=== PATIENT | male | born 1985 | race Caucasian/White ===

== ENCOUNTER 2020-06-03 19:57 | Emergency (ER) | payer MEDICAID, SELFPAY ==
--- NOTE | ~2020-06-03 | XR_ITS ---
EXAMINATION: XR HAND/WRIST, RIGHT CLINICAL INFORMATION: Fall with pain and swelling COMPARISON: None TECHNIQUE: 4 views of the right hand/wrist FINDINGS: There is a subtle irregularity along the distal radius opposite the scapholunate suggesting a nondisplaced fracture. Otherwise unremarkable radiographs of the right hand and wrist. XR/XR hand wrist RT IMPRESSION: Possible hairline fracture of the distal radius at the radiocarpal joint. Consider further evaluation with CT or MRI.
[2020-06-03 20:18] VITALS: BP 141/75; PULSE 87; RESP 16; TEMP 36.7; O2SAT 98; BMI 33.6
[2020-06-03] MEDS: Ibuprofen 600 MG TABLET PO (21:36)
[2020-06-03 23:06] VITALS: BP 137/83; PULSE 76; RESP 17; O2SAT 99
--- NOTE | 2020-06-03 23:12 | ED.FALL ---
HPI - Fall General Chief Complaint: Fall Stated Complaint: Hand pain/Fall Source: patient Mode of arrival: ambulatory Limitations: no limitations History of Present Illness HPI Narrative: 35-year-old male with no significant past medical history presents with right hand and wrist swelling and pain after a fall on outstretched arm after mechanical fall. He does not describe any other symptoms, does not describe any prodromal effects prior to the fall. MD complaint: fall Onset (ago): hour(s) (Within the hour of arrival) Fall from: standing Fall witnessed: yes, by family Place fall occurred: home Loss of consciousness: none Prolonged down time: no Symptoms prior to fall: none Context: tripped/slipped Location of injury - extremities: right: arm Severity: moderate Severity scale (1-10): 6 Quality: aching and throbbing Associated symptoms (after fall): denies Related Data Previous Rx's Medication Instructions Recorded oxycodone 5 mg PO Q8H PRN #7 tab 06/03/20 Allergies Allergy/AdvReac Type Severity Reaction Status Date / Time egg [EGG] Allergy Unknown STOMACH Verified 06/03/20 20:19 UPSET banana [BANANA] AdvReac Unknown STOMACH Verified 06/03/20 20:19 CRAMP [employer]ODU[employer] Allergy Unknown DIARRHEA Uncoded 11/23/19 15:33 Review of Systems Review of Systems: Constitutional: No Fever, No Chills ENT/Mouth: No Ear Pain, No Hoarseness, No sore throat Eyes: No Eye Pain, No Swelling, No Redness, No Foreign Body Cardiovascular: No Chest Pain, No SOB Respiratory: No Cough, No Dyspnea Gastrointestinal: No Nausea, No Vomiting, No Diarrhea, No abdominal Pain Genitourinary: No Dysuria, No Hematuria Musculoskeletal: positive right wrist pain, No Myalgias, No Joint Swelling Skin: No Skin lacerations, No rash Neuro: No Weakness, No Numbness, No Paresthesias, No Loss of Consciousness, No Dizziness, No Headache Psych: No Anxiety/Panic, No Depression Heme/Lymph: no easy bruising, no Lymphadenopathy Endocrine: No Polyuria, No Polydipsia Yes all other systems are reviewed and are negative PMFSH Past Medical History Attestation statement: The following information was validated with the patient. Source: old records reviewed Medical History Patient denies significant medical history Social History Social History Advance Directives: No Physical Exam Vital Signs: Vital Signs: Last Vital Signs Temp 98.0 F 06/03/20 20:18 Pulse 76 06/03/20 23:06 Resp 17 06/03/20 23:06 BP 137/83 06/03/20 23:06 Pulse Ox 99 06/03/20 23:06 Body Mass Index 33.6 Appearance: Alert. Oriented X3. Mild distress. Eyes: Pupils equal, round and reactive to light. ENT: Pharynx normal. Neck: Normal inspection. Neck supple. CVS: Normal heart rate and rhythm. Pulses normal. Respiratory: No respiratory distress. Breath sounds normal. Abdomen: Soft and nontender. Skin: Skin warm and dry. Normal skin color. Normal skin turgor. Extremities: Decreased range of motion to the right upper extremity wrist, no snuffbox tenderness, brisk capillary refill and equal pulses bilaterally Neuro: No motor deficit. No sensory deficit. Cranial nerves 2-12 intact Course Course Course Narrative: 35-year-old male presents with right hand and wrist pain after a FOOSH. X-rays indicate some distal radial fracture without displacement. Plan of care is for sugar-tong splint, pain management, and follow up with Orthopedics. Detailed description regarding plan to call hospital to speak to financial services regarding obtaining medical insurance. Approximately 30 minutes after sugar-tong placement, patient continues to have brisk capillary refill, and no focal neural deficits. Patient verbalized understanding of and agrees to plan of care discharge home. Procedures Orthopedic Splinting/Casting Injury #1: Side: right Upper Extremity Injury Location: forearm and wrist Upper Extremity Immobilizer: sugar tong splint MDM - Fall Differential Diagnosis Differential diagnosis: Likely dislocation, fracture and compression fracture Medical Records Attestation: I reviewed the patient's medical records. Lab Data Attestation: I reviewed the patient's lab results. Imaging Data Left hand and wrist x-ray: Attestation: I personally reviewed and interpreted this imaging study as follows: Radiologist's impression: EXAMINATION: XR HAND/WRIST, RIGHT CLINICAL INFORMATION: Fall with pain and swelling COMPARISON: None TECHNIQUE: 4 views of the right hand/wrist FINDINGS: There is a subtle irregularity along the distal radius opposite the scapholunate suggesting a nondisplaced fracture. Otherwise unremarkable radiographs of the right hand and wrist. XR/XR hand wrist RT IMPRESSION: Possible hairline fracture of the distal radius at the radiocarpal joint. Consider further evaluation with CT or MRI. Discharge Plan Discharge Clinical Impression: Distal radial fracture Qualifiers: Encounter type: initial encounter Fracture type: closed Fracture morphology: other fracture Laterality: right Qualified Code(s): S52.591A - Other fractures of lower end of right radius, initial encounter for closed fracture Patient Disposition: Home, Self-Care Instructions: Wrist Fracture in Adults (ED) Additional Instructions: You were evaluated for right hand pain after fall. You have a distal radial fracture. Please keep your sugar-tong splint in place until you see Orthopedics. Please call and request an appointment. You may consider calling the hospital's Main number and requesting financial services to help you obtain insurance I prescribed tablets of oxycodone. Oxycodone is a narcotic and as high risk for addiction and abuse. Do not drive or operate machinery while taking this medication. Thank you for choosing this emergency department for evaluation. Please follow-up with primary care physician as needed. Return to the emergency department for any new, concerning, or worsening symptoms. Prescriptions: New oxycodone 5 mg tablet 5 mg PO Q8H PRN (Reason: pain) Qty: 7 RF: 0 Stand Alone Forms: Work/School Release Interventions: ED Discharge Assessment Last Done: 06/04/20 00:37 Discharge Date/Time: 06/04/20 00:38
[2020-06-04] MEDS: oxyCODONE HCl Immed Release 5 MG TABLET 10 MG PO (00:34)
== END 2020-06-04 00:38 | disposition home or self-care (01) ==
PROVIDERS: Emergency Provider Emergency Medicine Emergency Medical Services
DX: S52.591A Other fractures of lower end of right radius, initial encounter for closed fracture (principal); W01.0XXA Fall on same level from slipping, tripping and stumbling without subsequent striking against object, initial encounter; Y93.9 Activity, unspecified; Y92.9 Unspecified place or not applicable; Y99.9 Unspecified external cause status
CPT/HCPCS: 29125; 73110; 73130; 99283; 99284

== ENCOUNTER 2020-06-10 09:15 | Outpatient (REF) | payer MEDICAID, SELFPAY ==
--- NOTE | ~2020-06-10 | XR_ITS ---
EXAMINATION: XR WRIST, RIGHT WITH SCAPHOID CLINICAL INFORMATION: Right wrist pain. COMPARISON: Right hand/wrist radiographs dated 06/03/2020 and right forearm radiographs dated 04/18/2016. TECHNIQUE: AP, oblique, lateral, and scaphoid views of the right wrist. FINDINGS: Redemonstration of a possible nondisplaced fracture through the distal radial articular surface, similar when compared to the prior radiographs. No new bone/callus formation. No osseous erosion. No abnormal soft tissue calcification. XR/XR wrist RT w scaphoid IMPRESSION: Redemonstration of a possible nondisplaced fracture through the distal radial articular surface. No significant interval change.
== END 2020-06-10 09:16 | disposition home or self-care (01) ==
LOC: HO.HOSX 09:15
PROVIDERS: Visit Provider Orthopaedic Surgery
DX: M25.531 Pain in right wrist (principal); S52.501A Unspecified fracture of the lower end of right radius, initial encounter for closed fracture; W18.30XA Fall on same level, unspecified, initial encounter; Y93.9 Activity, unspecified; Y92.69 Other specified industrial and construction area as the place of occurrence of the external cause; Y99.0 Civilian activity done for income or pay; F17.200 Nicotine dependence, unspecified, uncomplicated; Z91.012 Allergy to eggs; Z91.011 Allergy to milk products; Z91.018 Allergy to other foods
CPT/HCPCS: 73110; 99202

== ENCOUNTER 2020-07-15 12:04 | Outpatient (REF) | payer MEDICAID, SELFPAY ==
--- NOTE | ~2020-07-15 | XR_ITS ---
EXAMINATION: XR WRIST, RIGHT CLINICAL INFORMATION: Pain right wrist. COMPARISON: None TECHNIQUE: PA, lateral, and oblique views of the right wrist. FINDINGS: The bones and soft tissues are normal. No fracture. Alignment is anatomic with normal joint spaces. No erosions or abnormal soft tissue calcifications. XR/XR wrist RT min 3V IMPRESSION: Unremarkable right wrist exam
== END 2020-07-15 12:05 | disposition home or self-care (01) ==
LOC: HO.HOSX 12:04
PROVIDERS: Visit Provider Orthopaedic Surgery
DX: M25.531 Pain in right wrist (principal); S52.501A Unspecified fracture of the lower end of right radius, initial encounter for closed fracture
CPT/HCPCS: 73110; 99212

== ENCOUNTER 2020-08-06 08:16 | Outpatient (REF) | payer MEDICAID, SELFPAY ==
--- NOTE | ~2020-08-06 | XR_ITS ---
EXAMINATION: XR WRIST, RIGHT CLINICAL INFORMATION: Pain right wrist. COMPARISON: None TECHNIQUE: PA, lateral, and oblique views of the right wrist. FINDINGS: The bones and soft tissues are normal. No fracture. Alignment is anatomic with normal joint spaces. No erosions or abnormal soft tissue calcifications. XR/XR wrist RT min 3V IMPRESSION: Unremarkable right wrist exam.
== END 2020-08-06 08:17 | disposition home or self-care (01) ==
LOC: HO.HOSX 08:16
PROVIDERS: Visit Provider Orthopaedic Surgery
DX: S52.571D Other intraarticular fracture of lower end of right radius, subsequent encounter for closed fracture with routine healing (principal)
CPT/HCPCS: 73110; 99212

== ENCOUNTER 2021-01-11 20:03 | Emergency (ER) | payer MEDICAID, SELFPAY ==
--- NOTE | ~2021-01-11 | US_ITS ---
EXAMINATION: US SCROTUM CLINICAL INFORMATION: Left testicular pain/swelling. COMPARISON: 10/17/2010. TECHNIQUE: A sonogram of the scrotum was performed assessing crowley-scale appearance and color Doppler flow. Spectral Doppler analysis of the arterial and venous flow were performed in the testes bilaterally. FINDINGS: RIGHT: Right testicle measures 4.0 x 2.1 x 2.7 cm, volume 12.4 mL. No focal testicular parenchymal lesions are visualized. Spectral Doppler analysis of the arterial and venous flow is normal in the right testis. Right epididymal head is normal in size. No right hydrocele or varicocele is seen. Right epididymal Doppler flow is normal. There is a 0.9 cm epididymal cyst. LEFT: Left testicle measures 3.8 x 1.8 x 2.6 cm, volume 9.1 mL. No focal testicular parenchymal lesions are visualized. Spectral Doppler analysis of the arterial and venous flow is normal in the left testis. Left epididymal head is increase in size. No left hydrocele or varicocele is seen. Left epididymal Doppler flow is increased. There is a 0.9 cm epididymal cyst. There is a 1.6 x 1.1 x 1.8 cm complex appearing collection in the left scrotal sac from the epididymis and testis. There is surrounding hyperemia and soft tissue thickening. No definite internal vascularity is identified within within it. There is soft tissue edema throughout the inguinal region, greater on the left side. US/US scrotum doppler IMPRESSION: Asymmetric enlargement and hyperemia of the left epididymis, concerning for acute epididymitis in the appropriate clinical context. There is an indeterminate 1.8 cm complex appearing collection in the right scrotal sac with peripheral hyperemia and soft tissue thickening but no definite internal vascularity. This could represent an abscess or hematoma. Recommend clinical correlation and a short-term follow-up to ensure its resolution. Diffuse soft tissue edema.
[2021-01-11 20:50] VITALS: BP 154/87; PULSE 105; RESP 18; TEMP 36.5; O2SAT 100; BMI 32.8
--- NOTE | 2021-01-11 22:04 | ED.GENADULT ---
HPI - General Adult General Chief complaint: General Medical Stated complaint: Testicular issues Time Seen by Provider: 01/12/21 00:17 Source: patient Mode of arrival: ambulatory Limitations: no limitations History of Present Illness HPI narrative: 35 yold male presents to the ED for left testicular swelling and pain since yesterday. patient states yesterday there was a pimple of left testicle where he put a needle in to pop. patient than states this morning he woke up with his left testicle swollen. patient denies any drainage, redness, or foul odor. patient denies any penile discharge or penile lesions. Related Data Previous Rx's Medication Instructions Recorded oxycodone 5 mg tablet 5 mg PO Q8H PRN #7 tab 06/03/20 hydrocodone 5 mg-acetaminophen 325 1 tab PO Q8H PRN #10 tab 06/10/20 mg tablet cephalexin 500 mg capsule 500 mg PO QID #28 cap 01/12/21 doxycycline hyclate 100 mg capsule 100 mg PO BID 7 Days #14 cap 01/12/21 naproxen 500 mg tablet 500 mg PO BID PRN #20 tab 01/12/21 Allergies Allergy/AdvReac Type Severity Reaction Status Date / Time egg [EGG] Allergy Unknown STOMACH Verified 08/06/20 13:44 UPSET banana [BANANA] AdvReac Unknown STOMACH Verified 08/06/20 13:44 [employer] Allergy Unknown DIARRHEA Uncoded 07/15/20 13:38 Review of Systems Review of Systems: Yes all other systems are reviewed and are negative Constitutional: Constitutional: Reports as per HPI and Reports no additional constitutional complaints Eyes: Eyes: Reports as per HPI and Reports no additional eye complaints ENT: Reports system reviewed and no additional complaints, except as documented and Reports as per HPI Cardiovascular: Cardiovascular: Reports as per HPI and Reports no additional cardiovascular complaints Respiratory: Respiratory: Reports as per HPI and Reports no additional respiratory complaints Gastrointestinal: Gastrointestinal: Reports as per HPI and Reports no additional gastrointestinal complaints Genitourinary: Genitourinary: Reports no additional male genitourinary complaints and Reports as per HPI Comments: Left testicular pain Musculoskeletal: Musculoskeletal: Reports no additional musculoskeletal complaints and Reports as per HPI Neurologic: Reports system reviewed and no additional complaints, except as documented and Reports as per HPI Psychiatric: Psychiatric: Reports no additional psychiatric complaints and Reports as per HPI [facility] Past Medical History Medical History Patient denies significant medical history Family History Family History Mother No problems noted. Father No problems noted. 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 Physical Exam Vital Signs: Vital Signs: Last Vital Signs Temp 97.7 F 01/11/21 20:50 Pulse 105 H 01/11/21 20:50 Resp 18 01/11/21 20:50 BP 154/87 H 01/11/21 20:50 Pulse Ox 100 01/11/21 20:50 Body Mass Index 32.8 Const: General: cooperative, healthy appearing, comfortable, no acute distress, well developed, alert, awake and Physically active Orientation/consciousness: patient oriented x3 HENMT: Head: Yes normal to inspection, Yes No palpable skull fracture present, Yes normocephalic, Yes atraumatic and No abrasion Eyes: General: appearance normal, both eyes and all related structures Neck: Neck: Yes normal visual inspection, Yes full ROM, Yes no lymphadenopathy, Yes no meningeal signs, Yes trachea midline, Yes supple, No anterior neck swelling and No tender Chest: Chest palpation & inspection: normal inspection of the chest and normal palpation of entire chest wall Resp: Effort & Inspection: normal respiratory effort and able to speak in complete sentences Auscultation: clear to auscultation bilaterally Cardio: Jugular venous distension: no JVD Heart sounds: S1 normal heart sound present and S2 normal heart sound present GI: Inspection: Yes normal to inspection and No abdominal wall ecchymosis Palpation (GI): Soft to palpation, not firm, nontender, no guarding and not rigid : General: No CVA tenderness and Yes no CVA tenderness Penis: normal penis Meatus: meatus normal, no meatla discharge, No Blood at meatus present, no epispadias, no hypospadias, not stenotic, No Erythema at meatus and no other Male genitals images: 1. positive small pimple with slight surrounding tenderness on palpation and non-fluctulant. Negative for penile lesion or penile discharge 2. slight swelling, but no fluctulancae or mass on palpation. Back/Spine/Pelvis: Back: no CVA tenderness, No CVA tenderness and No back tenderness Skin: General skin exam: no rashes or lesions noted and abnormal elasticity Neuro: General: patient oriented x3, gait normal, no meningeal signs and CN's II-XI intact bilaterally Cranial nerves: Yes CN's II-XII intact bilaterally Extrem: General: Yes normal to inspection and Yes full ROM Psych: Appearance: grossly normal, well kempt and not disheveled Course Course Course Narrative: BEdside ultrasound does very very small nepocket of collection. Differential is cellulitis. Will order official ultrasound to check for abscess or torsion/epididymitits Reevaluation(s) Reevaluation #1: Ultrasound shows left epididymitis and also very small superficial abscess. Presently abscesses nonfluctuant. No indication for incision and drainage. Patient will be given ceftriaxone and doxycycline as treat for empiric treatment for STD induced epididymitis. UA CT in G sent. Patient educated warm compress 4 times a day for 15 minutes on very small abscess. Time: 00:59 Medical Decision Making [facility] Narrative Medical decision making narrative: Epididymitis, abscess Lab Data Labs: Lab Results 01/12/21 Range/Units 00:49 Urine Color YELLOW Urine Appearance CLEAR Urine pH 6.5 (5.0-8.0) Ur Specific [place] 1.025 (1.005-1.025) Urine Protein NEG (NEG-TRACE) MG/DL Urine Glucose (UA) NEG (NEG) MG/DL Urine Ketones NEG (NEG) MG/DL Urine Blood NEG (NEG) Urine Nitrite NEG (NEG) Ur Leukocyte Esterase NEG (NEG) Discharge Plan Discharge Clinical Impression: Acute epididymitis, Abscess, Cellulitis Patient Disposition: Home, Self-Care Instructions: Epididymitis (ED), Cellulitis (ED), Abscess (ED) Additional Instructions: Ultrasound shows epididymitis. Ultrasound also shows small early abscess is not yet ready to be drained. Also there is surrounding cellulitis/skin inflammation which required antibiotics. Return to the ED for increased testicular swelling, pus discharge foul odor, fever, chills, penile lesions, penile discharge, penile swelling, worsening testicular pain, or any other concerning symptoms. Recommend warm compress 4 times a day for 15 minutes on left testicle. need to follow-up with urology. Prescriptions: New cephalexin 500 mg capsule 500 mg PO QID Qty: 28 RF: 0 doxycycline hyclate 100 mg capsule 100 mg PO BID 7 Days Qty: 14 RF: 0 naproxen 500 mg tablet 500 mg PO BID PRN (Reason: pain) Qty: 20 RF: 0 No Action oxycodone 5 mg tablet 5 mg PO Q8H PRN (Reason: pain) Qty: 7 RF: 0 hydrocodone-acetaminophen 5-325 mg tablet 1 tab PO Q8H PRN (Reason: pain) Qty: 10 RF: 0 Referrals: Dale Mcconnell MD [Physician] - 2 days (Left epididymitis. Left small abscesses) Stand Alone Forms: Work/School Release Print Language: Thai
[2021-01-12] MEDS: cefTRIAXone sodium 500 MG, Lidocaine HCl 1 % MPF 1 ML IM (00:51)
[2021-01-12 01:03] LABS: Appearance Urine CLEAR; Color Urine YELLOW; Glucose Urine UA NEG (NEG); Leukocyte Esterase Urine NEG (NEG); Nitrite Urine NEG (NEG); PH 6.5 (5.0-8.0); Specific Gravity - Urine 1.025 (1.005-1.025); Urine Blood NEG (NEG); Urine Ketones NEG (NEG); Urine Protein NEG (NEG-TRACE)
[2021-01-12 11:48] LABS: CT PCR NOT DETECTED (Not Detect.); NG PCR NOT DETECTED (Not Detect.)
== END 2021-01-12 01:30 | disposition home or self-care (01) ==
PROVIDERS: Physician Assistant; Emergency Provider Internal Medicine
DX: N45.4 Abscess of epididymis or testis (principal); N48.22 Cellulitis of corpus cavernosum and penis; N50.812 Left testicular pain; Z79.899 Other long term (current) drug therapy
CPT/HCPCS: 76870; 81003; 87491; 87591; 93975; 96372; 99284; J0696

== ENCOUNTER → 2021-01-24 13:56 | Outpatient (BNVA) | payer MEDICAID, SELFPAY | PROVIDERS: Visit Provider Urology | DX: N49.2 Inflammatory disorders of scrotum (principal) | CPT/HCPCS: 99202 ==

== ENCOUNTER 2021-10-12 07:39 | Emergency (ER) | payer MEDICAID, SELFPAY ==
[2021-10-12 08:25] VITALS: BP 152/80; PULSE 92; RESP 20; TEMP 36.8; O2SAT 93
== END 2021-10-12 10:51 | disposition left against medical advice (07) ==
PROVIDERS: Emergency Provider Emergency Medicine
DX: T65.91XA Toxic effect of unspecified substance, accidental (unintentional), initial encounter (principal); X58.XXXA Exposure to other specified factors, initial encounter

== ENCOUNTER 2022-02-23 17:42 | Emergency (ER) | payer MEDICAID, SELFPAY ==
[2022-02-23 18:47] VITALS: BP 127/69; PULSE 80; RESP 18; TEMP 36.8; O2SAT 97; BMI 31.7
--- NOTE | 2022-02-23 18:47 | ED.CHESTPAIN ---
HPI - Chest Pain General Chief Complaint: General Medical Stated Complaint: COVID + chest pain, body aches Related Data Previous Rx's Medication Instructions Recorded oxycodone 5 mg tablet 5 mg PO Q8H PRN pain #7 tabs 06/03/20 hydrocodone 5 mg-acetaminophen 325 1 tab PO Q8H PRN pain #10 tabs 06/10/20 mg tablet cephalexin 500 mg capsule 500 mg PO QID #28 caps 01/12/21 doxycycline hyclate 100 mg capsule 100 mg PO BID 7 days #14 caps 01/12/21 naproxen 500 mg tablet 500 mg PO BID PRN pain #20 tabs 01/12/21 Allergies Allergy/AdvReac Type Severity Reaction Status Date / Time egg [EGG] Allergy Unknown STOMACH Verified 01/24/21 14:06 UPSET banana [BANANA] AdvReac Unknown STOMACH Verified 01/24/21 14:06 [employer] Allergy Unknown DIARRHEA Uncoded 01/24/21 14:06 [facility] Past Medical History Medical History Patient denies significant medical history Family History Family History Mother No problems noted. Father No problems noted. 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 He states that he had COVID-19 positive with testing this morning. Symptom onset 0400. Complaining of diffuse anterior chest pain, cough, shortness of breath. He states he is most concerned about his heart. Plan: COVID-19 testing, EKG, Discharge Plan Discharge Clinical Impression: Chest pain Patient Disposition: Elopement Prescriptions: No Action oxycodone 5 mg tablet 5 mg PO Q8H PRN (Reason: pain) Qty: 7 0RF cephalexin 500 mg capsule 500 mg PO QID Qty: 28 0RF doxycycline hyclate 100 mg capsule 100 mg PO BID 7 Days Qty: 14 0RF naproxen 500 mg tablet 500 mg PO BID PRN (Reason: pain) Qty: 20 0RF hydrocodone-acetaminophen 5-325 mg tablet 1 tab PO Q8H PRN (Reason: pain) Qty: 10 0RF Discharge Date/Time: 02/23/22 23:38
== END 2022-02-23 23:38 | disposition left against medical advice (07) ==
PROVIDERS: Emergency Provider Emergency Medicine
DX: U07.1 COVID-19 (principal); R07.89 Other chest pain
CPT/HCPCS: 99281; 99282

== ENCOUNTER 2023-04-08 18:11 | Emergency (ER) | payer MEDICAID, SELFPAY ==
[2023-04-08 18:29] VITALS: BP 116/76; BP 127/83; PULSE 76; PULSE 81; RESP 16; TEMP 36.6; O2SAT 98; BMI 26.6
--- NOTE | 2023-04-08 18:48 | PC.NURSE ---
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 notified.
--- NOTE | 2023-04-08 18:59 | ED.OVERDOSE ---
HPI - Overdose General Chief Complaint: Overdose Stated Complaint: OD, 8MG NARCAN GIVEN, A&O Time Seen by Provider: 04/08/23 18:21 Source: patient Mode of arrival: EMS History of Present Illness HPI Narrative: 37-year-old male who reports that he purchased an oxy and states that he felt drowsy, EMS states that his family found him unresponsive, 8 mg of nasal Narcan were administered. Patient denies any attempts to self-harm, he states he does not want to stay, he is not interested in speaking to anyone regarding his use of Oxy and reports that it was only occasionally. Related Data Previous Rx's Medication Instructions Recorded oxycodone 5 mg tablet 5 mg PO Q8H PRN pain #7 tabs 06/03/20 hydrocodone 5 mg-acetaminophen 325 1 tab PO Q8H PRN pain #10 tabs 06/10/20 mg tablet cephalexin 500 mg capsule 500 mg PO QID #28 caps 01/12/21 doxycycline hyclate 100 mg capsule 100 mg PO BID 7 days #14 caps 01/12/21 naproxen 500 mg tablet 500 mg PO BID PRN pain #20 tabs 01/12/21 Allergies Allergy/AdvReac Type Severity Reaction Status Date / Time egg [EGG] Allergy Unknown STOMACH Verified 01/24/21 14:06 UPSET banana [BANANA] AdvReac Unknown STOMACH Verified 01/24/21 14:06 CRAMP DAIRY PRODUCTS Allergy Unknown DIARRHEA Uncoded 01/24/21 14:06 Review of Systems Review of Systems: Pertinent positives and negatives as stated in HPI PMFSH Past Medical History Source: nursing notes reviewed Medical History Patient denies significant medical history Family History Family History Mother No problems noted. Father No problems noted. 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 GENERAL: Well developed, well nourished, in no acute distress. HEAD: Normocephalic/atraumatic EYES: PERRLA, EOMI EARS: Ext canals without abnormality NOSE: Nares patent bilateral OROPHARYNX: no oral lesions noted, posterior pharynx clear NECK: Supple, no adenopathy LUNGS: Normal breath sounds. No adventitious sounds or accessory muscle use. SpO2<98> CARDIOVASCULAR: Regular rate and rhythm without noted murmurs ABDOMEN: Soft, non-tender, non-distended with bowel sounds. MUSCULOSKELETAL: No tenderness, deformities, or effusions noted on gross inspection. EXTREMITIES: No cyanosis, clubbing or edema. SKIN: Inspection of the skin reveals no rashes NEUROLOGIC: Alert and oriented x 4. Strength and sensation to light touch were grossly intact x 4, cranial nerves 2-12 are grossly intact. Medical Decision Making Medical Decision Making MDM Narrative: 37-year-old male with history and clinical presentation of accidental overdose, continues to endorse that he had no thoughts of self-harm and declines any discussion with the care team and is not interested in detox. Patient does not wish to stick around and the risks and benefits were discussed with him to include the possibility of drowsiness and possible unresponsiveness once again, however he is alert and oriented and wishes and understands that he will be signing out against medical advice. He was discharged with home Narcan. Differential Diagnosis Differential Diagnoses: The differential diagnosis associated with the presentation includes Please see the discussion above Admission/Observation Consideration of admission/observation: Escalation of care including admission/observation considered Please see the discussion above Critical Care Time Critical Care Time Critical Care Time: Yes Total Critical Care Time: 30 Attestation: I personally attest to this time spent taking care of the patient. Discharge Plan Discharge Clinical Impression: Overdose Patient Disposition: Left Against Medical Advice Instructions: Adult Overdose (ED) Additional Instructions: Do not hesitate to return to the emergency room for any worsening symptoms. You have been discharged with home Narcan. Prescriptions: No Action oxycodone 5 mg tablet 5 mg PO Q8H PRN (Reason: pain) Qty: 7 0RF cephalexin 500 mg capsule 500 mg PO QID Qty: 28 0RF doxycycline hyclate 100 mg capsule 100 mg PO BID 7 Days Qty: 14 0RF naproxen 500 mg tablet 500 mg PO BID PRN (Reason: pain) Qty: 20 0RF hydrocodone-acetaminophen 5-325 mg tablet 1 tab PO Q8H PRN (Reason: pain) Qty: 10 0RF Stand Alone Forms: Against Medical Advice
== END 2023-04-08 19:16 | disposition left against medical advice (07) ==
LOC: HO.ED 18:50
PROVIDERS: Emergency Provider Student in an Organized Health Care Education/Training Program
DX: T48.0X1A Poisoning by oxytocic drugs, accidental (unintentional), initial encounter (principal); R40.4 Transient alteration of awareness; Y92.9 Unspecified place or not applicable
CPT/HCPCS: 99284

== ENCOUNTER 2023-11-23 11:43 | Emergency (ER) | payer MEDICAID, SELFPAY ==
--- NOTE | ~2023-11-23 | CT_ITS ---
EXAMINATION: CT ABDOMEN AND PELVIS WITHOUT CONTRAST CLINICAL INFORMATION: Hematuria. COMPARISON: None available. TECHNIQUE: Multidetector volumetric imaging was performed from the superior aspect of the liver through the pubic symphysis. Sagittal and coronal reformatted images were obtained on the technologist's workstation. This CT examination was performed using dose optimization techniques as appropriate, variously including the following: *Automated exposure control *Adjustment of mA and/or kV according to patient size (this includes techniques or standardized protocols for targeted exams where dose is matched to indication/reason for exam; i.e. extremities or head) *Use of iterative reconstruction technique DLP: 620 mGy-cm FINDINGS: PASTE UP ARTIST: Nonobstructive bowel pattern. LUNG BASES: The visualized lung bases are unremarkable. LIVER, GALLBLADDER, AND BILIARY TREE: The liver is normal in size, shape, and attenuation. No focal hepatic lesion or biliary ductal dilatation is present. The gallbladder is unremarkable with no evidence of radiopaque gallstones, gallbladder wall thickening, or obvious pericholecystic inflammatory changes. PANCREAS: Unremarkable. SPLEEN: Unremarkable. ADRENAL GLANDS: Unremarkable. KIDNEYS AND URETERS: The kidneys are normal in size, shape, and attenuation. No hydronephrosis, hydroureter, or calculi seen. No perinephric stranding. BLADDER: Decompressed. Mild urachal stranding. GASTROINTESTINAL TRACT: The stomach is decompressed. Nonobstructive bowel pattern. Unremarkable appendix and terminal ileum. Mild fecal retention. Mild diverticulosis without diverticulitis. ABDOMINAL WALL: No significant hernia is appreciated. LYMPH NODES: Normal. VASCULAR: Atherosclerotic calcifications nonaneurysmal aorta. Normal caliber inferior vena cava. PELVIC VISCERA: Unremarkable. OSSEOUS STRUCTURES: Unremarkable. CT/CT abdomen pelvis wo IV con IMPRESSION: 1. No CT evidence of obstructive uropathy or nephrolithiasis. 2. Mild urachal stranding, correlate with urinalysis. 3. Mild diverticulosis without diverticulitis. Fleischner guidelines were followed. Electronically signed by: Deja Galvan MD 11/23/2023 01:56 PM EDT
[2023-11-23 12:08] VITALS: BP 131/84; PULSE 80; RESP 18; TEMP 36.9; O2SAT 97; BMI 30.6
--- NOTE | 2023-11-23 12:08 | ED.GENADULT ---
HPI - General Adult General Chief complaint: Abdominal Pain Stated complaint: Fatigued, back pain Time Seen by Provider: 11/23/23 13:26 History of Present Illness ED Provider: Carlos Alberto HPI narrative: 38 y/o M patient; PMH substance use disorder; presents from home reporting a few episodes of hematuria associated with intermittent right-sided flank pain. He denies: fever or chills, SOB, cough/congestion, chest pain, nausea/vomiting, diarrhea. He denies dysuria. He denies any history of lifetime IV drug use. Related Data Previous Rx's ?Medication ?Instructions ?Recorded oxycodone 5 mg tablet 5 mg PO Q8H PRN pain #7 tabs 06/03/20 hydrocodone 5 mg-acetaminophen 325 1 tab PO Q8H PRN pain #10 tabs 06/10/20 mg tablet cephalexin 500 mg capsule 500 mg PO QID #28 caps 01/12/21 doxycycline hyclate 100 mg capsule 100 mg PO BID 7 days #14 caps 01/12/21 naproxen 500 mg tablet 500 mg PO BID PRN pain #20 tabs 01/12/21 Allergies Allergy/AdvReac Type Severity Reaction Status Date / Time egg [EGG] Allergy Unknown STOMACH Verified 11/23/23 12:09 UPSET banana [BANANA] AdvReac Unknown STOMACH Verified 11/23/23 12:09 CRAMP DAIRY PRODUCTS Allergy Unknown DIARRHEA Uncoded 01/24/21 14:06 Review of Systems Review of Systems: Yes all other systems are reviewed and are negative Neurologic: Denies Sensory deficit (Neuro) PMFSH Past Medical History Attestation statement: The following information was validated with the patient. Source: old records reviewed Medical History Patient denies significant medical history Family History Family History Mother No problems noted. Father No problems noted. 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 Const General: cooperative and no acute distress Orientation/consciousness: patient oriented x3 HENMT Head: Yes normal to inspection and Yes atraumatic Eyes General: appearance normal, both eyes and all related structures Pupils: Equal, round and reactive pupils present EOM: EOMs intact bilaterally Neck Neck: Yes normal visual inspection, Yes full ROM, Yes supple and No tender Chest Chest palpation & inspection: normal inspection of the chest and normal palpation of entire chest wall Resp Effort & Inspection: normal respiratory effort, able to speak in complete sentences, no cough and no respiratory distress Auscultation: clear to auscultation bilaterally Cardio Rate: regular rate Rhythm: regular rhythm Peripheral pulses: Peripheral pulses 2+ throughout GI Inspection: Yes normal to inspection, No Abdominal wall edema and No distended Palpation (GI): Soft to palpation, not firm, nontender, no guarding and not rigid Auscultation: normal bowel sounds Back/Spine/Pelvis Back: No back tenderness Neuro General: patient oriented x3 Cranial nerves: Yes Equal, round and reactive pupils present Motor exam (neuro): 5/5 motor strength present throughout Sensory Exam: No Sensory deficit (Neuro) Course Course Course Narrative: This is a Rapid Medical Examination (RME) performed by Grace Owens PA-C in triage. Full HPI, ROS, assessment and treatment plan per primary provider in the Main ED. 38 yo male presents to the ER for evaluation of lower back pain, intermittent hematuria and fatigue for the last 2 weeks. Appears comfortable in Plan: labs, UA Reevaluation(s) Reevaluation #1: Patient is afebrile and hemodynamically stable. Reviewed triage work up. UA unremarkable without hematuria. Labs reviewed. Without significant leukocytosis. COVID/Flu/RSV negative. CT Abdomen/Pelvis unremarkable. Patient reports possible concern for STIs. Hx chlamydia in adolescence. Agreeable to STD testing. Added Gonorrhea/Chlamydia testing, HIV testing, Syphilis testing. CPK negative. Plan: Discharge to home with PCP follow up Return precautions given Medical Decision Making Lab Data 11/23/23 12:38 11/23/23 12:38 Labs: Lab Results 09/17/24 Range/Units 12:38 WBC 11.6 H (4.8-10.8) X10*3/uL RBC 5.27 (4.60-5.80) X10*6/uL Hgb 16.5 (14.0-18.0) g/dl Hct 49.1 (42.0-52.0) % MCV 93.2 (80.0-98.0) fL MCH 31.3 (27.0-33.0) pg MCHC 33.6 (31.0-36.0) g/dl RDW 14.3 (11.0-16.0) % Plt Count 247 (160-400) X10*3/uL MPV 10.5 (9.4-12.4) fL Immature Gran % (Auto) 0.9 H (0.0-0.4) % Neut % (Auto) 53.1 (45-73) % Lymph % (Auto) 33.6 (20-40) % [place] % (Auto) 7.4 (2-11) % Eos % (Auto) 4.0 (0-4) % Baso % (Auto) 1.0 (0-2) % Lymph # (Auto) 3.9 (1.2-4.9) X10*3/uL [place] # (Auto) 0.9 (0.1-1.2) X10*3/uL Eos # (Auto) 0.5 H (0.0-0.4) X10*3/uL Baso # (Auto) 0.1 (0.0-0.2) X10*3/uL Abs Immat Gran (auto) 0.11 H (0.00-0.03) X10*3/uL Absolute Neuts (auto) 6.2 (2.0-8.3) x10*3/uL Absolute Nucleated RBC 0.000 (0.0-0.012) X10*3/uL Nucleated RBC % (auto) 0.0 (0.0-0.2) /100WBC Sodium 139 (135-145) mmol/L Potassium 4.3 (3.3-5.1) mmol/L Chloride 106 (96-108) mmol/L Carbon Dioxide 27 (22-29) mmol/L Anion Gap 10 L (12-20) BUN 14 (9-16) mg/dL Creatinine 1.06 (0.5-1.4) mg/dL Estim Creat Clear Calc 103.6 Estimated GFR > 60 Random Glucose 107 (60-115) mg/dL Calcium 9.9 (8.4-10.2) mg/dL Magnesium 2.1 (1.6-2.6) mg/dL Total Bilirubin 0.3 (0.0-1.0) mg/dL Direct Bilirubin 0.1 (0.0-0.5) mg/dL AST 31 (5-37) U/L ALT 35 (0-40) U/L Alkaline Phosphatase 76 (39-117) U/L Total Creatine Kinase 114 (38-174) U/L Total Protein 7.8 (6.5-8.0) g/dL Albumin 4.3 (3.5-5.0) g/dL Urine Color Yellow Urine Appearance Clear Urine pH 5.5 (5.0-9.0) Ur Specific [place] 1.020 (1.005-1.025) Urine Protein Negative (Neg-Trace) mg/dL Urine Glucose (UA) Negative (Negative) mg/dL Urine Ketones Negative (Negative) mg/dL Urine Blood Negative (Negative) Urine Nitrite Negative (Negative) Ur Leukocyte Esterase Small (1+) H (Negative) Urine RBC 0-2 (0-2) /HPF Urine WBC 0-5 (0-5) /HPF Ur Squamous Epith Cells 0-2 (0-2) /HPF Urine Bacteria None Seen (None Seen) Hyaline Casts 0-2 (0-2) /LPF Influenza Type A (PCR) NEGATIVE (Negative) Influenza Type B (PCR) NEGATIVE (Negative) RSV RNA Qual (PCR) NEGATIVE (Negative) SARS-CoV-2 RNA (RT-PCR) NEGATIVE (Negative) Radiology Impression Discussion of test interpretation with radiology: I have reviewed the radiologist's reading. Radiologist Impression: EXAMINATION: CT ABDOMEN AND PELVIS WITHOUT CONTRAST CLINICAL INFORMATION: Hematuria. COMPARISON: None available. TECHNIQUE: Multidetector volumetric imaging was performed from the superior aspect of the liver through the pubic symphysis. Sagittal and coronal reformatted images were obtained on the technologist's workstation. This CT examination was performed using dose optimization techniques as appropriate, variously including the following: *Automated exposure control *Adjustment of mA and/or kV according to patient size (this includes techniques or standardized protocols for targeted exams where dose is matched to indication/reason for exam; i.e. extremities or head) *Use of iterative reconstruction technique DLP: 620 mGy-cm FINDINGS: CLINICAL DATA ASSOCIATE: Nonobstructive bowel pattern. LUNG BASES: The visualized lung bases are unremarkable. LIVER, GALLBLADDER, AND BILIARY TREE: The liver is normal in size, shape, and attenuation. No focal hepatic lesion or biliary ductal dilatation is present. The gallbladder is unremarkable with no evidence of radiopaque gallstones, gallbladder wall thickening, or obvious pericholecystic inflammatory changes. PANCREAS: Unremarkable. SPLEEN: Unremarkable. ADRENAL GLANDS: Unremarkable. KIDNEYS AND URETERS: The kidneys are normal in size, shape, and attenuation. No hydronephrosis, hydroureter, or calculi seen. No perinephric stranding. BLADDER: Decompressed. Mild urachal stranding. GASTROINTESTINAL TRACT: The stomach is decompressed. Nonobstructive bowel pattern. Unremarkable appendix and terminal ileum. Mild fecal retention. Mild diverticulosis without diverticulitis. ABDOMINAL WALL: No significant hernia is appreciated. LYMPH NODES: Normal. VASCULAR: Atherosclerotic calcifications nonaneurysmal aorta. Normal caliber inferior vena cava. PELVIC VISCERA: Unremarkable. OSSEOUS STRUCTURES: Unremarkable. CT/CT abdomen pelvis wo IV con IMPRESSION: 1. No CT evidence of obstructive uropathy or nephrolithiasis. 2. Mild urachal stranding, correlate with urinalysis. 3. Mild diverticulosis without diverticulitis. Fleischner guidelines were followed. Electronically signed by: Deja Galvan MD 11/23/2023 01:56 PM EDT Discharge Plan Discharge Clinical Impression: Hematuria Patient Disposition: Home, Self-Care Instructions: Hematuria (ED) Additional Instructions: As we discussed, you were seen today with concern for blood in your urine. Your urine here did not show blood or infection. Your CT scan of your abdomen/pelvis was normal. Please follow up with your PCP within the next 1 - 2 days to discuss your recent emergency department visit. Return to the emergency department for: Worsening abdominal pain Vomiting Fever Prescriptions: No Action oxycodone 5 mg tablet 5 mg PO Q8H PRN (Reason: pain) Qty: 7 0RF cephalexin 500 mg capsule 500 mg PO QID Qty: 28 0RF doxycycline hyclate 100 mg capsule 100 mg PO BID 7 Days Qty: 14 0RF naproxen 500 mg tablet 500 mg PO BID PRN (Reason: pain) Qty: 20 0RF hydrocodone-acetaminophen 5-325 mg tablet 1 tab PO Q8H PRN (Reason: pain) Qty: 10 0RF Print Language: Polish
[2023-11-23 12:45] LABS: MANUAL DIFF FLAG NO
[2023-11-23 12:49] LABS: Basophils Absolute Auto 0.1 X10*3/uL (0.0-0.2); Eosinophils Absolute Auto 0.5 X10*3/uL (0.0-0.4); Hematocrit 49.1 % (42.0-52.0); Hemoglobin 16.5 g/dl (14.0-18.0); Imm Gran Abs Auto 0.11 X10*3/uL (0.00-0.03); Imm Gran Pct Auto 0.9 % (0.0-0.4); Lymphocytes Absolute Auto 3.9 X10*3/uL (1.2-4.9); Lymphocytes Percent Auto 33.6 % (20-40); Mean Corpuscular HGB Conc 33.6 g/dl (31.0-36.0); Mean Corpuscular Hemoglobin 31.3 pg (27.0-33.0); Mean Corpuscular Volume 93.2 fL (80.0-98.0); Mean Platelet Volume 10.5 fL (9.4-12.4); Monocytes Absolute Auto 0.9 X10*3/uL (0.1-1.2); Monocytes Percent Auto 7.4 % (2-11); Neutrophils Absolute Auto 6.2 x10*3/uL (2.0-8.3); Neutrophils Percent Auto 53.1 % (45-73); Platelet Count 247 X10*3/uL (160-400); Red Blood Count 5.27 X10*6/uL (4.60-5.80); Red Cell Distribution Width 14.3 % (11.0-16.0); White Blood Count 11.6 X10*3/uL (4.8-10.8)
[2023-11-23 12:50] LABS: Appearance Urine Clear; Color Urine Yellow; Glucose Urine UA Negative (Negative); Leukocyte Esterase Urine Small (1+) (Negative); Nitrite Urine Negative (Negative); PH 5.5 (5.0-9.0); UMIC TRIGGER UACC YES; Urine Blood Negative (Negative); Urine Ketones Negative (Negative); Urine Protein Negative (Neg-Trace)
[2023-11-23 12:59] LABS: Bacteria Urine None Seen (None Seen); Hyaline Casts Urine 0-2 /LPF (0-2); RBC Urine 0-2 /HPF (0-2); Squamous Epithelial Cell Urine 0-2 /HPF (0-2); UACC Culture Trigger YES; WBC Urine 0-5 /HPF (0-5)
[2023-11-23 13:05] LABS: Alanine Aminotransferase 35 U/L (0-40); Albumin Level 4.3 g/dL (3.5-5.0); Alkaline Phosphatase 76 U/L (39-117); Anion Gap 10 (12-20); Aspartate Amino Transferase 31 U/L (5-37); Bilirubin Direct 0.1 mg/dL (0.0-0.5); Bilirubin Total 0.3 mg/dL (0.0-1.0); Blood Urea Nitrogen 14 mg/dL (9-16); Calcium 9.9 mg/dL (8.4-10.2); Carbon Dioxide 27 mmol/L (22-29); Chloride 106 mmol/L (96-108); Creatinine Clr Calc Pharmacy 103.6; Estimated Glomerular Filt Rate > 60; Glucose Random 107 mg/dL (60-115); Magnesium 2.1 mg/dL (1.6-2.6); Potassium 4.3 mmol/L (3.3-5.1); Sodium 139 mmol/L (135-145); Total Protein 7.8 g/dL (6.5-8.0)
[2023-11-23 13:32] LABS: Influenza A PCR NEGATIVE (Negative); Influenza B PCR NEGATIVE (Negative); Resp Syncy Virus RNA Qual PCR NEGATIVE (Negative); SARS COV2 PCR INHOUSE NEGATIVE (Negative)
[2023-11-23 13:58] VITALS: BP 118/61; PULSE 61; RESP 16; TEMP 36.9; O2SAT 96
[2023-11-23 15:43] VITALS: BP 142/97; PULSE 68; RESP 16; TEMP 36.2; O2SAT 96
[2023-11-23 17:00] LABS: CT PCR NOT DETECTED (Not Detect.); NG PCR NOT DETECTED (Not Detect.)
[2023-11-24 07:30] LABS: HIV AB/AG Nonreactive (Nonreactive); HIV Num 1 0.05 S/CO (0.00-0.99)
[2023-11-24 07:56] LABS: Syphilis Screen Nonreactive (Nonreactive)
== END 2023-11-23 15:49 | disposition home or self-care (01) ==
PROVIDERS: Physician Assistant; Emergency Provider Emergency Medicine
DX: R31.9 Hematuria, unspecified (principal); M54.50 Low back pain, unspecified; R10.9 Unspecified abdominal pain; Z03.818 Encounter for observation for suspected exposure to other biological agents ruled out; Z79.899 Other long term (current) drug therapy
CPT/HCPCS: 0241U; 74176; 80048; 80076; 81001; 82550; 83735; 85025; 86780; 87086; 87389; 87491; 87591; 99284

== ENCOUNTER 2024-09-26 14:48 | Emergency (ER) | payer MEDICAID, SELFPAY ==
--- NOTE | ~2024-09-26 | XR_ITS ---
EXAMINATION: XR SHOULDER, LEFT CLINICAL INFORMATION: Left shoulder pain COMPARISON: None available. TECHNIQUE: AP external rotation, Grashey, scapular Y, and axillary views of the left shoulder. FINDINGS: The bones and soft tissues are normal. No fracture. Glenohumeral and acromioclavicular alignment is anatomic with normal joint space. No abnormal soft tissue calcifications. XR/XR shoulder LT min 2V IMPRESSION: Unremarkable left shoulder Electronically signed by: Castro Cervantes MD 09/26/2024 03:33 PM EDT RP
[2024-09-26 14:56] VITALS: BP 148/96; PULSE 75; RESP 16; TEMP 36.7; O2SAT 99; BMI 34.1
--- NOTE | 2024-09-26 14:58 | ECG_ITS ---
Test Reason : LEFT SHOULDER PAIN Blood Pressure : */* mmHG Vent. Rate : 69 BPM Atrial Rate : 69 BPM P-R Int : 154 ms QRS Dur : 90 ms QT Int : 378 ms P-R-T Axes : 2 52 28 degrees QTcB Int : 405 ms Normal sinus rhythm Normal ECG When compared with ECG of 06-Aug-2010 11:33, No significant changes seen Referred By: Nico Ayers Electronically Signed By: Rodolfo Parry
--- NOTE | 2024-09-26 15:01 | ED.EXTPRO ---
HPI - Extremity Problem General Chief complaint: Extremity Injury, Upper Stated complaint: fell month ago left shoulder pain Time Seen by Provider: 09/26/24 15:00 Source: patient Mode of arrival: ambulatory Limitations: no limitations History of Present Illness ED Provider: Nico Ayers HPI Narrative: 39 yold male presents to the ED for left shoulder pain for month since falling off a ladder. patient states he can't completely lift arm above head since fall. Patient denies any headache, paralysis, numbness, tingling, fever, chills, chest pain, shortness of breath, nausea, vomiting. Related Data Previous Rx's ?Medication ?Instructions ?Recorded oxycodone 5 mg tablet 5 mg PO Q8H PRN pain #7 tabs 06/03/20 hydrocodone 5 mg-acetaminophen 325 1 tab PO Q8H PRN pain #10 tabs 06/10/20 mg tablet cephalexin 500 mg capsule 500 mg PO QID #28 caps 01/12/21 doxycycline hyclate 100 mg capsule 100 mg PO BID 7 days #14 caps 01/12/21 naproxen 500 mg tablet 500 mg PO BID PRN pain #20 tabs 01/12/21 cyclobenzaprine 10 mg tablet 10 mg PO BEDTIME PRN muscle spasm 09/26/24 #10 tabs naproxen 500 mg tablet 500 mg PO BID PRN pain #14 tabs 09/26/24 Allergies Allergy/AdvReac Type Severity Reaction Status Date / Time egg (EGG) Allergy Unknown STOMACH Verified 09/26/24 14:59 UPSET banana (BANANA) AdvReac Unknown STOMACH Verified 09/26/24 14:59 CRAMP DAIRY PRODUCTS Allergy Unknown DIARRHEA Uncoded 01/24/21 14:06 Review of Systems Review of Systems: Left shoulder Yes all other systems are reviewed and are negative PMFSH Past Medical History Medical History Patient denies significant medical history Family History Family History Mother No problems noted. Father No problems noted. 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 Physical Exam Vital Signs: Vital Signs: Last Vital Signs Temp 98.0 F 09/26/24 16:57 Pulse 75 09/26/24 16:57 Resp 16 09/26/24 16:57 BP 148/96 H 09/26/24 16:57 Pulse Ox 99 09/26/24 16:57 O2 Del Method Room Air 09/26/24 16:57 BMI result Body Mass Index 34.1 Const: General: cooperative, healthy appearing, comfortable, no acute distress, well developed, alert, awake and Physically active Orientation/consciousness: patient oriented x3 HEENT: Head: Yes normal to inspection, Yes No palpable skull fracture present, Yes normocephalic and Yes atraumatic Ears: hearing grossly normal bilaterally, external ears normal, TM's normal bilaterally, TM normal on the right, TM normal on the left, EAC's normal, mastoids normal and no periauricular adenopathy Eyes: General: appearance normal, both eyes and all related structures Neck: Neck: Yes normal visual inspection, Yes full ROM, Yes no lymphadenopathy, Yes no meningeal signs, Yes trachea midline, Yes supple, No anterior neck swelling and No tender Chest: Chest palpation & inspection: normal inspection of the chest and normal palpation of entire chest wall Resp: Effort & Inspection: normal respiratory effort and able to speak in complete sentences Cardio: Jugular venous distension: no JVD Heart sounds: S1 normal heart sound present and S2 normal heart sound present GI: Inspection: Yes normal to inspection Palpation (GI): Soft to palpation, not firm, nontender, no guarding and not rigid : General: Yes no CVA tenderness Back/Spine/Pelvis: Back: no CVA tenderness and No back tenderness Skin: General skin exam: no rashes or lesions noted, elasticity normal and turgor normal Neuro: General: patient oriented x3, gait normal, tone normal, moves all extremities, Normal light touch and pain sensation, no meningeal signs, no focal motor deficits, CN's II-XI intact bilaterally and normal sensation to monofilament Extrem: General: Yes normal to inspection, Yes full ROM and Yes capillary refill normal Shoulder/upper arm images:  1. Positive for tenderness onvascular exam intact p Patient can not lift shoulder above head and pain on range of motion. Motor exam is limited due to pain. Vascular and neuro exam is intact. Psych: Appearance: grossly normal, well kempt and not disheveled Medical Decision Making Medical Decision Making [facility] Narrative: RME: 39 yold male presents to the ED for left shoulder pain for 1 month since falling off the ladder and landing on left shoulder. Patient states limited range of motion of shoulder overhead due to pain and clicking sound. Patient denies any headache nausea vomiting weakness or dizziness. Shoulder x-ray labs EKG ordered 4:12pm: Labs EKG came back reassuring. Shoulder x-ray negative for any fracture or dislocation. Patient informed he may have a rotator cuff for Librium injury and will need follow up with primary care provider orthopedic for physical therapy and MRI. Not suspecting DVT, arterial occlusion, compartment syndrome, cellulitis, necrotizing fasciitis, lymphangitis, or any other life-threatening etiology Differential Diagnosis Differential Diagnoses: The differential diagnosis associated with the presentation includes (Rotator cuff injury, shoulder fracture) Admission/Observation Consideration of admission/observation: Escalation of care including admission/observation considered Lab Data [facility] Lab Attestation statement: I reviewed the patient's lab results. 09/26/24 15:13 09/26/24 15:13 Labs: Lab Results 09/26/24 Range/Units 15:13 WBC 10.8 (4.8-10.8) X10*3/uL RBC 5.04 (4.60-5.80) X10*6/uL Hgb 15.8 (14.0-18.0) g/dl Hct 47.2 (42.0-52.0) % MCV 93.7 (80.0-98.0) fL MCH 31.3 (27.0-33.0) pg MCHC 33.5 (31.0-36.0) g/dl RDW 14.6 (11.0-16.0) % Plt Count 235 (160-400) X10*3/uL MPV 10.9 (9.4-12.4) fL Immature Gran % (Auto) 0.6 H (0.0-0.4) % Neut % (Auto) 54.6 (45-73) % Lymph % (Auto) 33.0 (20-40) % [place] % (Auto) 8.1 (2-11) % Eos % (Auto) 2.4 (0-4) % Baso % (Auto) 1.3 (0-2) % Lymph # (Auto) 3.6 (1.2-4.9) X10*3/uL [place] # (Auto) 0.9 (0.1-1.2) X10*3/uL Eos # (Auto) 0.3 (0.0-0.4) X10*3/uL Baso # (Auto) 0.1 (0.0-0.2) X10*3/uL Abs Immat Gran (auto) 0.06 H (0.00-0.03) X10*3/uL Absolute Neuts (auto) 5.9 (2.0-8.3) x10*3/uL Absolute Nucleated RBC 0.000 (0.0-0.012) X10*3/uL Nucleated RBC % (auto) 0.0 (0.0-0.2) /100WBC PT 10.0 L (10.9-12.4) SEC INR 0.9 (0.9-1.1) APTT 32.4 (26.0-36.8) SEC Sodium 141 (135-145) mmol/L Potassium 4.2 (3.3-5.1) mmol/L Chloride 109 H (96-108) mmol/L Carbon Dioxide 25 (22-29) mmol/L Anion Gap 11 L (12-20) BUN 11 (9-16) mg/dL Creatinine 0.85 (0.5-1.4) mg/dL Estim Creat Clear Calc 130.7 Estimated GFR > 60 Random Glucose 103 (60-115) mg/dL Calcium 8.9 D (8.4-10.2) mg/dL Total Bilirubin 0.2 (0.0-1.0) mg/dL AST 28 (5-37) U/L ALT 41 H (0-40) U/L Alkaline Phosphatase 85 (39-117) U/L Troponin I High Sens < 2.7 (<3.5-35.0) ng/L Total Protein 7.4 (6.5-8.0) g/dL Albumin 4.5 (3.5-5.0) g/dL Independent Interpretation I performed an independent interpretation of an: EKG (negative Stemi) Independent Historian Clinical information obtained from an independent historian. History obtained from or confirmed by: Other (patient) Prescription Management I considered prescription management with: Pain Medication Discharge Plan Discharge Clinical Impression: Rotator cuff injury, Muscle strain of left shoulder Patient Disposition: Home, Self-Care Instructions: Rotator Cuff Injury (ED), Rotator Cuff Injury Exercises (DC) Additional Instructions: You will need follow up with primary care provider and orthopedic surgery for physical therapy and MRI to evaluate for possible rotator cuff muscle injury/tear. Return to the ED for increased pain, swelling, numbness/tingling, weakness, bluish black discoloration, red rash, or any other concerning symptoms. EXAMINATION: XR SHOULDER, LEFT CLINICAL INFORMATION: Left shoulder pain COMPARISON: None available. TECHNIQUE: AP external rotation, Grashey, scapular Y, and axillary views of the left shoulder. FINDINGS: The bones and soft tissues are normal. No fracture. Glenohumeral and acromioclavicular alignment is anatomic with normal joint space. No abnormal soft tissue calcifications. XR/XR shoulder LT min 2V IMPRESSION: Unremarkable left shoulder Electronically signed by: Castro Cervantes MD 09/26/2024 03:33 PM EDT RP Prescriptions: New naproxen 500 mg tablet 500 mg PO BID PRN (Reason: pain) Qty: 14 0RF cyclobenzaprine 10 mg tablet 10 mg PO BEDTIME PRN (Reason: muscle spasm) Qty: 10 0RF Rx Instructions: side effect is drowsiness. Do not take at work or while driving. No Action oxycodone 5 mg tablet 5 mg PO Q8H PRN (Reason: pain) Qty: 7 0RF cephalexin 500 mg capsule 500 mg PO QID Qty: 28 0RF doxycycline hyclate 100 mg capsule 100 mg PO BID 7 Days Qty: 14 0RF naproxen 500 mg tablet 500 mg PO BID PRN (Reason: pain) Qty: 20 0RF hydrocodone-acetaminophen 5-325 mg tablet 1 tab PO Q8H PRN (Reason: pain) Qty: 10 0RF [place] [facility] [place] [facility]Provider Group, Orthopedics] - 3 days Referral Note: Fall, left shoulder pain. We will need physical therapy and MRI Clinical Impression: Muscle strain of left shoulder; Rotator cuff injury Center,[facility] [Primary Care Provider, Medical] - 2 days Referral Note: Left shoulder injury. Need physical therapy MRI Clinical Impression: Muscle strain of left shoulder; Rotator cuff injury Stand Alone Forms: Work/School Release Interventions: ED Discharge Assessment Last Done: 09/26/24 16:57 Discharge Date/Time: 09/26/24 16:45 Print Language: Grenadian
[2024-09-26 15:18] LABS: MANUAL DIFF FLAG NO
[2024-09-26 15:19] LABS: Hematocrit 47.2 % (42.0-52.0); Hemoglobin 15.8 g/dl (14.0-18.0); Imm Gran Abs Auto 0.06 X10*3/uL (0.00-0.03); Imm Gran Pct Auto 0.6 % (0.0-0.4); Lymphocytes Absolute Auto 3.6 X10*3/uL (1.2-4.9); Mean Corpuscular HGB Conc 33.5 g/dl (31.0-36.0); Mean Corpuscular Hemoglobin 31.3 pg (27.0-33.0); Mean Corpuscular Volume 93.7 fL (80.0-98.0); NRBC Abs Auto 0.000 X10*3/uL (0.0-0.012); NRBC Pct Auto 0.0 /100WBC (0.0-0.2); Platelet Count 235 X10*3/uL (160-400); Red Blood Count 5.04 X10*6/uL (4.60-5.80); White Blood Count 10.8 X10*3/uL (4.8-10.8)
[2024-09-26 15:31] LABS: INTERNATIONAL NORM RATIO 0.9 (0.9-1.1); Partial Thromboplastin Time 32.4 SEC (26.0-36.8); Prothrombin Time 10.0 SEC (10.9-12.4)
[2024-09-26 15:32] LABS: Alanine Aminotransferase 41 U/L (0-40); Albumin Level 4.5 g/dL (3.5-5.0); Alkaline Phosphatase 85 U/L (39-117); Anion Gap 11 (12-20); Aspartate Amino Transferase 28 U/L (5-37); Blood Urea Nitrogen 11 mg/dL (9-16); Calcium 8.9 mg/dL (8.4-10.2); Carbon Dioxide 25 mmol/L (22-29); Chloride 109 mmol/L (96-108); Creatinine Clr Calc Pharmacy 130.7; Estimated Glomerular Filt Rate > 60; Potassium 4.2 mmol/L (3.3-5.1); Sodium 141 mmol/L (135-145); Total Protein 7.4 g/dL (6.5-8.0)
[2024-09-26 15:41] LABS: Troponin-I High Sensitivity < 2.7 ng/L (<3.5-35.0)
--- OUTSIDE RECORDS SUMMARY | 2024-09-26 16:40 | XMS_ITS | Clinical Summary ---
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 Role Phone Unavailable Primary Care Provider Unavailabl e Social History Tobacco Use Types Packs/Day Years Used Date Smoking Tobacco: Never Assessed Sex and Gender Information Value Date Recorded Sex Assigned at Male 01/05/2022 10:18 AM EDT Legal Sex Male 10:18 AM EDT Gender Identity Not on file Sexual Orientation Not on file Plan of Treatment Health Maintenance Due Date Last Done Comments Depression Screening 1985 HIV Screening 1985 Lipid Panel 1985 Disability Screening 1985 Alcohol/Substance Use Screening 1997 Tobacco Screening 1997 Family Planning (PISQ) 2000 HPV Vaccines (1 - Male 3-dos e series) 2000 Hepatitis C Screening 05/14/2003 DTaP/Tdap/Td Vaccines (1 - Tdap) 2004 Hepatitis B Vaccines (1 of 3 - 19+ 3-dose series) 2004 COVID-19 Vaccine (1 - 2023-2 5 season) 2023 Influenza Vaccine (#1) 2024 Zoster Vaccines (1 of 2) 05/14/2035 RSV Patients and Pa tients Aged 60 years or older (1 - 1-dose 75+ series) 2060 HIB Vaccines Aged Out No longer eligi ble based on patient's age to complete this topic Hepatitis A Vaccines Aged Out No long er eligible based on patient's age to complete this topic IPV Vaccines Aged Out No longer eligi ble based on patient's age to complete this topic Meningococcal B Vaccine Aged Out No l onger eligible based on patient's age to complete this topic Meningococcal Vaccine Aged Out No petey mindi eligible based on patient's age to complete this topic Pneumococcal Vaccine: Pediat rics (0 to 5 Years) and At-Risk Patients (6 to 49) Years Aged Out No longer eligible b ased on patient's age to complete this topic RSV under 20 months Aged Out No longe r eligible based on patient's age to complete this topic Rotavirus Vaccines Aged Out No longer eligible based on patient's age to complete this topic
[2024-09-26 16:57] VITALS: BP 148/96; PULSE 75; RESP 16; TEMP 36.7; O2SAT 99
== END 2024-09-26 16:45 | disposition home or self-care (01) ==
PROVIDERS: Physician Assistant; Emergency Provider Emergency Medicine Emergency Medical Services
DX: S46.012A Strain of muscle(s) and tendon(s) of the rotator cuff of left shoulder, initial encounter (principal); W11.XXXA Fall on and from ladder, initial encounter; M25.512 Pain in left shoulder; Y93.9 Activity, unspecified; Y92.9 Unspecified place or not applicable; Y99.9 Unspecified external cause status
CPT/HCPCS: 36415; 73030; 80053; 84484; 85025; 85610; 85730; 93005; 99283

== ENCOUNTER → 2024-09-26 14:58 | Outpatient (BNV) | payer MEDICAID, SELFPAY | PROVIDERS: Emergency Provider Emergency Medicine Emergency Medical Services; Visit Provider Internal Medicine Cardiovascular Disease | DX: M25.512 Pain in left shoulder (principal) | CPT/HCPCS: 93010 ==

== ENCOUNTER → 2024-09-26 14:58 | Outpatient (BNV) | payer MEDICAID, SELFPAY | PROVIDERS: Emergency Provider Emergency Medicine Emergency Medical Services; Visit Provider Radiology Diagnostic Radiology | DX: M25.512 Pain in left shoulder (principal) | CPT/HCPCS: 73030 ==

== ENCOUNTER 2024-10-11 19:40 | Outpatient (REF) | payer MEDICAID, SELFPAY ==
--- NOTE | ~2024-10-11 | MR_ITS ---
CLINICAL HISTORY: fall 6 weeks ago, XR negative, pt w pain and LUE weakness MR left shoulder without intravenous contrast Comparison: X-rays of the left shoulder from 09/26/2024 Findings: Partial tear of the supraspinatus with anterior fiber, insertion, and/or articular surface fiber involvement. Mild/minimal retraction of the fibers. No muscle belly atrophy or muscular volume loss. Tendinosis of the infraspinatus with mild anterior fraying of the insertion fibers. No complete tear of the infraspinatus. Teres minor is intact. Subscapularis is intact with mild upper-superior tendinosis. Edge of the field artifacts noted. Proximal deltoid signal can be seen with muscular strain, particularly anteriorly. Small effusion of the left glenohumeral joint with fluid extending to subacromial elements subdeltoid bursa. Mild osteoarthritis of the left glenohumeral joint. Imaged glenoid labrum is otherwise unremarkable for noncontrast study. Imaged biceps tendon is noted within biceps groove with mild adjacent fluid in the partial septation in the C 8th. Mild osteoarthritis of the left AC joint with effusion present. Mild red marrow reconversion without suspicious marrow or osseous lesion by imaging at this time. IMPRESSION: 1. Rotator cuff tendinopathy with supraspinatus tear. 2. Small effusion of the left glenohumeral joint with mild osteoarthritis. Additional fluid extends to subacromion and subdeltoid bursa. 3. Mild osteoarthritis of the left AC joint with effusion present. This document has been electronically signed by: Bulmaro Riddle MD on 10/11/2024 22:22:00
--- OUTSIDE RECORDS SUMMARY | 2024-10-11 19:44 | XMS_ITS | Clinical Summary ---
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 Name Role Phone Boris Aden Primary Care Provider [phone] Immunizations Immunization Administration Dates Next Due DTP 07/05/1990, 8,02/26/1986,1985,1985 Hep B, ped/adol 02/26/1998,03/09/1997,02/06/1997 MMR 02/06/1997,01/07/1987 OPV 07/05/1990, 8,1985,1985 Td (adult) ([facility] [place]), 5 Lf t etanus toxoid, PF, adsorbed 12/13/1995 Social History Tobacco Use Types Packs/Day Years Used Date Smoking Tobacco: Never Assessed Sex and Gender Information Value Date Recorded Sex Assigned at Not on file Legal Sex Male 4:35 PM EDT Gender Identity Not on file Sexual Orientation Not on file Plan of Treatment Health Maintenance Due Date Last Done Comments DTaP,Tdap,and Td Vaccines (6 - Tdap) 1996 12/13/1995, 07/05/1990, 04/25/1987, Additional history exists Varicella Vaccines (1 of 2 - 13+ 2-dose series) 1998 COVID-19 Vaccine ( season) 2023 Influenza Vaccines (#1) 2024 IPV Vaccines Completed 07/05/1990, 04/08, 1985, Additional history exists MMR Vaccines Completed 02/06/1997, 01/07/1987 Hepatitis B Vaccines Completed 02/26/1998, 03/09/1997, 02/06/1997 HIB Vaccines Aged Out No longer eligi ble based on patient's age to complete this topic HPV Vaccines Aged Out No longer eligi ble based on patient's age to complete this topic Hepatitis A Vaccines Aged Out No long er eligible based on patient's age to complete this topic Men B Vaccine Aged Out No longer elig ible based on patient's age to complete this topic Meningococcal Vaccine Aged Out No petey mindi eligible based on patient's age to complete this topic Pneumococcal Vaccine Aged Out No long er eligible based on patient's age to complete this topic Care Teams Armor Senior Sergeant Relationship Specialty Start Date End Date Boris Aden [address] [place] [phone] PCP - General 10/16/16
== END 2024-10-11 19:41 | disposition home or self-care (01) ==
LOC: HO.MRI 19:40
PROVIDERS: Visit Provider Psychiatry & Neurology Neurology
DX: M25.512 Pain in left shoulder (principal); R29.898 Other symptoms and signs involving the musculoskeletal system
CPT/HCPCS: 73221

== ENCOUNTER → 2024-10-11 20:04 | Outpatient (BNV) | payer MEDICAID, SELFPAY | PROVIDERS: Visit Provider Radiology Neuroradiology | DX: M25.412 Effusion, left shoulder (principal) | CPT/HCPCS: 73221 ==

== ENCOUNTER 2024-12-06 11:45 | Outpatient (AMB) | payer MEDICAID, SELFPAY ==
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
[2024-12-06 11:53] VITALS: BMI 34.1
--- OUTSIDE RECORDS SUMMARY | 2024-12-06 13:23 | XMS_ITS | Clinical Summary ---
Author Organization [employer] Address [address] [facility] 7[address] [place] [address] Care Team Providers Care Volunteer Services Specialist Name Role Phone Jackeline Stevens Unavailable Allergies Active Allergy Reactions Criticality Noted Date Comments Naproxen Abdominal Pain 10/10/2024 Banana Abdominal Pain 10/10/2024 Egg White (Egg Protein) Abdominal Pain 10/11/19 25 Milk (Cow) Vomiting,Abdominal Pain 10/10/2024 Medications * This document contains information received from the source organization and may not represent a complete record from that organization. Blood Pressure kitIndications:El evated blood pressure reading without diagnosis of hypertension 1 each 2 times daily. 1 kit 5 10/11/19 26 Active triamcinolone (Kenalog) 0.1 % creamIndications: Rash Apply twice daily to L hand for at least 2 weeks 80 g 5 Active clotrimazole (Lotrimin) 1 % creamIndications: Tinea Apply twice daily to foot for 28d 60 g 1 5 Active Diclofenac Sodium (Voltaren) 1 % gelIndications:Ac [place] pain of left shoulder Apply up to 4x/d to affected joint(s) for pain/swelling 100 g 2 5 Active Active Problems Problem Noted Date Diagnosed Date Severe episode of recurrent major depressive disorder, without psychotic features (CMS/HCC) 10/27/2024 Other social stressor 10/27/2024 History of gastroesophageal reflux (GERD) 2024 Encounters * This document contains information received from the source organization and may not represent a complete record from that organization. Date Type Department Care Team Description 10/13/2024 Results Follow-Up [facility] [address] [place] [address] Mingo Espinoza ANP MR Shoulder w/o Contrast Left 10/10/2024 2:20 PM EDT Office Visit [facility] [address] [place] [address] [phone] Mingo Espinoza ANP Acute pain of left shoulder (Primary Dx); History of gastroesophageal reflux (GERD); Stress; Low motivation; Elevated blood pressure reading without diagnosis of hypertension; Rash; Tinea; Left arm weakness 10/10/[address] [facility] [address] [place] [address] [phone] Mingo Espinoza ANP Appointment Request (Patient needs a new patient appointment) 10/10/2024 Travel from Last 3 Months Immunizations Immunization Administration Dates Next Due Tdap 10/10/2024 Social History Tobacco Use Types Packs/Day Years Used Date Smoking Tobacco: Every Day Cigarettes Smokeless Tobacco: Never Tobacco Cessation:Ready to Q uit: No; Counseling Given: No Comments:4-5 cigs/d Alcohol Use Standard Drinks/Week Comments Not Asked 0 (1 standard drink = 0.6 oz pur e alcohol) socially Depression Answer Date Recorded Patient Health Questionnaire-9 Score 17 11/02/2024 Patient Health Questionnaire-9 Score 17 11/02/2024 Last PHQ-9: Questionnaire Data Not on file 0 11/02/2024 Depression Answer Date Recorded Patient Health Questionnaire-2 Score 6 11/02/2024 Sex and Gender Information Value Date Recorded Sex Assigned at Male 01/05/2022 10:18 AM EDT Legal Sex Male 10:18 AM EDT Gender Identity Male 10/10/2024 1:30 PM EDT Sexual Orientation Straight 10/10/2024 1: 30 PM EDT Last Filed Vital Signs Vital Sign Reading Time Taken Comments Blood Pressure 140/98 10/10/2024 2:47 PM EDT Pulse 68 10/10/2024 1:58 PM EDT Temperature 37.1 C (98.7 F) 10/10/2024 1:58 PM EDT Respiratory Rate 18 10/10/2024 1:58 PM EDT Oxygen Saturation 98% 10/10/2024 1:58 PM EDT Inhaled Oxygen Concentration - - Weight 99.7 kg (219 lb 12.8 oz) 10/10/2024 1:58 PM EDT Height - - Body Mass Index - - Plan of Treatment Upcoming Encounters Date Type Department Care Team (Late st Contact Info) Description 01/15/2025 2:00 PM EST Office Visit [facility] [address] [place] [address] Name, MD Stan [address] [facility] [place] [address] Health Maintenance Due Date Last Done Comments HIV Screening 1985 Lipid Panel 1985 SDOH Screening 1985 Disability Screening 1985 Alcohol/Substance Use Screening 1997 Family Planning (PISQ) 2000 HPV Vaccines (1 - Male 3-dose series) 2000 Hepatitis C Screening 05/14/2003 Pneumococcal Vaccine: Pediatrics (0 to 5 Years) and At-Risk Patients (6 to 49) Years (1 of 2 - PCV) 2004 COVID-19 Vaccine (3 - season) 2024 08/12/2020, 07/22/2020 Influenza Vaccine (#1) 2024 04/13/2014 Depression Monitoring 05/05/2025 11/02/2024, 025 Tobacco Screening 10/10/2025 10/10/2024 DTaP/Tdap/Td Vaccines (8 - Td or Tdap) 10/10/2034 10/10/2024, 04/13/2014, 12/13/1995, Additional history exists Zoster Vaccines (1 of 2) 05/14/2035 RSV Patients and Patients Aged 60 years or older (1 - 1-dose 75+ series) 2060 IPV Vaccines Completed 07/05/1990, 04/08, 1985, Additional history exists Hepatitis B Vaccines Completed 02/26/1998, 03/09/1997, 02/06/1997 [...] on patient's age to complete this topic Procedures Procedure Name Priority Date/Time Associated Diagnosis Comments MR SHOULDER WO CONTRAST LEFT Urgent 10/11/2024 10:22 PM EDT Acute pain of left shoulder Left arm weakness from Last 3 Months Results * MR Shoulder w/o Contrast Left (10/11/2024 10:22 PM EDT) Anatomical Region Laterality Modality Upper Extremities, Shoulder Left Magn etic Resonance 10/11/2024 10:2 2 PM EDT Narrative 10/11/2024 10:23 PM EDT [address] [address] Magnetic Resonance Report Signed Patient: Boris Bonilla MR#: [id number] : 1985 Acct:[id number] Age/Sex: 39 / M ADM Date: 10/11/24 Loc: HO.MRI Attending Dr: Helena Goode MD Ordering Physician: MINGO ESPINOZA NP Date of Service: 10/11/24 Procedure(s): MR shoulder LT wo con Accession Number(s): [id number] cc: MINGO ESPINOZA NP CLINICAL HISTORY: fall 6 weeks ago, XR negative, pt w pain and LUE weakness MR left shoulder without intravenous contrast Comparison: X-rays of the left shoulder from 09/26/2024 Findings: Partial tear of the supraspinatus with anterior fiber, insertion, and/or articular surface fiber involvement. Mild/minimal retraction of the fibers. No muscle belly atrophy or muscular volume loss. Tendinosis of the infraspinatus with mild anterior fraying of the insertion fibers. No complete tear of the infraspinatus. Teres minor is intact. Subscapularis is intact with mild upper-superior tendinosis. Edge of the field artifacts noted. Proximal deltoid signal can be seen with muscular strain, particularly anteriorly. Small effusion of the left glenohumeral joint with fluid extending to subacromial elements subdeltoid bursa. Mild osteoarthritis of the left glenohumeral joint. Imaged glenoid labrum is otherwise unremarkable for noncontrast study. Imaged biceps tendon is noted within biceps groove with mild adjacent fluid in the partial septation in the C 8th. Mild osteoarthritis of the left AC joint with effusion present. Mild red marrow reconversion without suspicious marrow or osseous lesion by imaging at this time. IMPRESSION: 1. Rotator cuff tendinopathy with supraspinatus tear. 2. Small effusion of the left glenohumeral joint with mild osteoarthritis. Additional fluid extends to subacromion and subdeltoid bursa. 3. Mild osteoarthritis of the left AC joint with effusion present. This document has been electronically signed by: Bulmaro Riddle MD on 10/11/2024 22:22:00 Dictated By: Bulmaro Riddle MD Signed By: <Electronically signed by Bulmaro Riddle MD in OV> 10/11/242221 DD/ 21 TD/TT: 10/11/242221 Journeyman Pipefitter: Procedure Note Donotuseinterpreter, Image - 10/11/2024 [place] [address] Magnetic Resonance Report Signed Patient: Enid Bonilla#: [id number] : 1985Acct:[id number] Age/Sex: 39 / MADM Date: 10/11/24 Loc: HO.MRI Attending Dr: Helena Goode MD Ordering Physician: MINGO ESPINOZA NP Date of Service: 10/11/24 Procedure(s): MR shoulder LT wo con Accession Number(s): [id number] cc: MINGO ESPINOZA NP CLINICAL HISTORY: fall 6 weeks ago, XR negative, pt w pain and LUEweakness MR left shoulder without intravenous contrast Comparison: X-rays of the left shoulder from 09/26/2024 Findings: Partial tear of the supraspinatus with anterior fiber, insertion, and/or articular surface fiber involvement. Mild/minimal retraction of the fibers. No muscle belly atrophy or muscular volume loss. Tendinosis of the infraspinatus with mild anterior fraying of the insertion fibers. No complete tear of the infraspinatus. Teres minor is intact. Subscapularis is intact with mild upper-superior tendinosis. Edge of the field artifacts noted. Proximal deltoid signal can be seen with muscular strain, particularly anteriorly. Small effusion of the left glenohumeral joint with fluid extending to subacromial elements subdeltoid bursa. Mild osteoarthritis of the left glenohumeral joint. Imaged glenoid labrum is otherwise unremarkable for noncontrast study. Imaged biceps tendon is noted within biceps groove with mild adjacent fluid in the partial septation in the C 8th. Mild osteoarthritis of the left AC joint with effusion present. Mild red marrow reconversion without suspicious marrow or osseous lesion by imaging at this time. IMPRESSION: 1. Rotator cuff tendinopathy with supraspinatus tear. 2. Small effusion of the left glenohumeral joint with mild osteoarthritis. Additional fluid extends to subacromion and subdeltoid bursa. 3. Mild osteoarthritis of the left AC joint with effusion present. This document has been electronically signed by: Bulmaro Riddle MD on 10/11/2024 22:22:00 Dictated By: Bulmaro Riddle MD Signed By: <Electronically signed by Bulmaro Riddle MD in OV> 10/11/242221 DD/ 2222 TD/TT: 10/11/242221 Journeyman Pipefitter: [facility] MRI PROCEDURES Final Result from Last 3 Months Insurance [facility] C3 Care Teams Volunteer Services Specialist Relationship Specialty Start Date End Date Jackeline Stevens [address] [place] [address] Orthopaedic Surgery 10/13/24 [facility] [address] [facility] 4th [place] [address] Physical Therapy 10/13/24
--- OUTSIDE RECORDS SUMMARY | 2024-12-06 13:23 | XMS_ITS | Clinical Summary ---
Author Organization [facility] Address [address] [place] [phone] Phone Care Team Providers Care Care Trainer Name Role Phone Boris Aden Primary Care Provider [phone] Immunizations Immunization Administration Dates Next Due DTP 07/05/1990, 8,02/26/1986,1985,1985 Hep B, ped/adol 02/26/1998,03/09/1997,02/06/1997 MMR 02/06/1997,01/07/1987 OPV 07/05/1990, 8,1985,1985 Td (adult) ([facility] [place] 5 Lf t [...] of 2 - 13+ 2-dose series) 1998 HPV Vaccines (1 - 3-dose SCDM series) 2012 Influenza Vaccines (#1) 2024 COVID-19 Vaccine (2024- season) 2024 IPV Vaccines Completed 07/05/1990, 04/08, 1985, [...] age to complete this topic Care Teams Care Trainer Relationship Specialty Start Date End Date Boris Aden [address] [place] [phone] PCP - General 10/16/16
== END 2024-12-06 12:04 | disposition home or self-care (01) ==
LOC: HO.HOS 11:45
PROVIDERS: Visit Provider Physician Assistant
DX: M75.112 Incomplete rotator cuff tear or rupture of left shoulder, not specified as traumatic (principal)
CPT/HCPCS: 99204

== ENCOUNTER → 2024-12-06 11:45 | Outpatient (BNVA) | payer MEDICAID, SELFPAY | PROVIDERS: Visit Provider Physician Assistant | DX: M75.112 Incomplete rotator cuff tear or rupture of left shoulder, not specified as traumatic (principal) | CPT/HCPCS: 99212 ==

== ENCOUNTER 2024-12-07 11:30 | Emergency (ER) | payer OTHER, SELFPAY ==
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
[2024-12-07 11:55] VITALS: BP 146/112; PULSE 80; RESP 20; TEMP 37; O2SAT 97; BMI 32.3
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
[2024-12-07 14:33] VITALS: BP 146/112; PULSE 80; RESP 20; TEMP 37; O2SAT 97
--- OUTSIDE RECORDS SUMMARY | 2024-12-07 15:57 | XMS_ITS | Clinical Summary ---
Author Organization [facility] Address [address] [place] [phone] Phone Care Team Providers Care Parts Cleaner Name Role Phone Boris Aden Primary Care Provider [phone] Immunizations Immunization Administration Dates Next Due DTP [...] age to complete this topic Care Teams Parts Cleaner Relationship Specialty Start Date End Date Boris Aden [address] [place] [phone] PCP - General 10/16/16
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
== END 2024-12-07 14:33 | disposition home or self-care (01) ==
PROVIDERS: Emergency Provider Emergency Medicine; PCP Nurse Practitioner Primary Care
DX: S43.402A Unspecified sprain of left shoulder joint, initial encounter (principal); S79.911A Unspecified injury of right hip, initial encounter; R10.23 Pelvic and perineal pain bilateral; M54.12 Radiculopathy, cervical region; M54.2 Cervicalgia; V43.52XA Car driver injured in collision with other type car in traffic accident, initial encounter; Y93.9 Activity, unspecified; Y92.488 Other paved roadways as the place of occurrence of the external cause; Y99.8 Other external cause status; F17.210 Nicotine dependence, cigarettes, uncomplicated; Z79.899 Other long term (current) drug therapy
CPT/HCPCS: 70450; 72125; 73030; 73502; 73610; 99282; 99284

== ENCOUNTER → 2024-12-07 11:59 | Outpatient (BNV) | payer MEDICAID, SELFPAY | PROVIDERS: Emergency Provider Emergency Medicine; PCP Nurse Practitioner Primary Care; Visit Provider Radiology Diagnostic Radiology | DX: M47.812 Spondylosis without myelopathy or radiculopathy, cervical region (principal); Z04.3 Encounter for examination and observation following other accident; M25.551 Pain in right hip; M25.512 Pain in left shoulder; M25.571 Pain in right ankle and joints of right foot; V89.2XXA Person injured in unspecified motor-vehicle accident, traffic, initial encounter | CPT/HCPCS: 70450; 72125; 73030; 73502; 73610 ==

== ENCOUNTER 2025-01-29 08:25 | Outpatient (AMB) | payer MEDICAID, SELFPAY ==
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
[2025-01-29 08:29] VITALS: BMI 32.2
--- OUTSIDE RECORDS SUMMARY | 2025-01-29 08:31 | XMS_ITS | Clinical Summary ---
Author Organization [facility] Address [address] [place] [phone] Phone Care Team Providers Care Jewelry Bench Worker Name Role Phone Boris Aden Primary Care Provider [phone] Immunizations Immunization Administration Dates Next Due DTP 07/05/1990, 8,02/26/1986,1985,1985 Hep B, ped/adol 02/26/1998,03/09/1997,02/06/1997 MMR 02/06/1997,01/07/1987 OPV 07/05/1990, 8,1985,1985 Td (adult) ([facility]), 5 Lf t etanus toxoid, PF, adsorbed [...] age to complete this topic Care Teams Jewelry Bench Worker Relationship Specialty Start Date End Date Boris Aden [address] [place] [id number] PCP - General 10/16/16
--- OUTSIDE RECORDS SUMMARY | 2025-01-29 08:31 | XMS_ITS | Clinical Summary ---
Author Organization [employer] Address [address] [facility] [address] [place] [address] Care Team Providers Care Spray Gun Repairer Helper Name Role Phone Jackeline Stevens Unavailable Name, Stan CAMERON Primary Care Provider [phone] Allergies Active Allergy Reactions Criticality Noted Date Comments Naproxen Abdominal Pain 10/10/2024 Banana Abdominal Pain 10/10/2024 Egg Protein (Egg White) Abdominal Pain 10/11/19 25 Milk (Cow) Vomiting,Abdominal Pain 10/10/2024 Medications * This document contains information received from the source organization and may not represent a complete record from that organization. Blood Pressure kitIndications:E levated blood pressure reading without diagnosis of hypertension 1 each 2 times daily. 1 kit 5 10/11/19 26 Active Additional Information Patient not taking.Reported on 01/19/2025 triamcinolone (Kenalog) 0.1 % creamIndications :Rash Apply twice daily to L hand for at least 2 weeks 80 g 5 Active Additional Information Patient not taking.Reported on 01/19/2025 clotrimazole (Lotrimin) 1 % creamIndications :Tinea Apply twice daily to foot for 28d 60 g 1 5 Active Additional Information Patient not taking.Reported on 01/19/2025 Diclofenac Sodium (Voltaren) 1 % gelIndications:A cute pain of left shoulder Apply up to 4x/d to affected joint(s) for pain/swelling 100 g 2 5 Active Additional Information Patient not taking.Reported on 01/19/2025 clotrimazole (Lotrimin) 1 % cream Apply topically 2 times daily for 28 days. 60 g 3 5 02/17/20 25 Active fluconazole (Diflucan) 150 MG tablet Take 1 tablet (150 mg) by mouth 1 (one) time per week for 3 doses. 3 tablet 02/04/20 25 Active Active Problems Problem Noted Date Diagnosed Date Severe episode of recurrent major depressive disorder, without psychotic features (CMS/HCC) 10/27/2024 Other social stressor 10/27/2024 History of gastroesophageal reflux (GERD) 2024 Encounters Date Type Department Care Team Description 01/19/2025 9:30 AM EST Office Visit [facility] MED[facility]INE [address] [place] [id number] Stan Coronado MD Disorder of left rotator cuff (Primary Dx); Tobacco user; Screening examination for STI; Screening for diabetes mellitus; Screening for cholesterol level; Family history of thyroid disease; Tinea pedis, unspecified laterality 01/19/[address] [address] Stan Coronado MD Appointment Request (Eye examination visit) 01/19/2025 Travel 01/18/[address] [address] Johny Calvert MA chartprep 01/12/[address] [address] Nico Hernandez MA chart prep 01/08/2025 Patient Outreach [facility] [address] [place], [place] [id number] Stan Coronado MD Pre-visit Planning (SDOH negative, Tobacco screening positive) 12/07/2024 Orders Only [facility] External Provider, [facility] from Last 3 Months Immunizations Immunization Administration Dates Next Due Tdap 10/10/2024 Family History Medical History Relation Name Comments No Known Problems Brother Diabetes Father Thyroid disease Mother Thyroid disease Sister Relation Name Status Comments Brother Father Mother Sister Social History Tobacco Use Types Packs/Day Years Used Date Smoking Tobacco: Every Day Cigarettes Passive Smoke Exposure: Current Smokeless Tobacco: Never Tobacco Cessation:Ready to Q uit: Not Asked; Counseling Given: Not Answered Comments:4-5 cigs/d Alcohol Use Standard Drinks/Week Comments Not Asked 0 (1 standard drink = 0.6 oz pur e alcohol) socially Alcohol Answer Date Recorded How often do you have a drink containing alcohol ? 1 01/19/2025 How many drinks containing a lcohol do you have on a typical day when you are drinking? 1 01/19/2025 Frequency of Binge Drinking Not on file 01/06 Depression Answer Date Recorded Patient Health Questionnaire-9 Score 4 01/19/2025 Patient Health Questionnaire-9 Score 4 01/19/2025 Last PHQ-9: Questionnaire Data Not on file 1 03/21/2024 Housing Stability Answer Date Recorded What is your housing situation today? I have ger andrade 01/08/[address] you li ve. Do you have problems with any of the following? None of the above 01/08/2025 Food Insecurity Answer Date Recorded Within the past 12 months, y ou worried that your food would run out before you got money to buy more: Never True 01/08/2025 Within the past 12 months,th e food you bought just didn't last and you didn't have enough money to get more: Never True 05/2024 Transportation Answer Date Recorded In the past 12 months, has l ack of transportation kept you from medical appts, meetings, work or from getting things needed for daily living? No 01/08/2025 Utilities Answer Date Recorded In the past 12 months, has t he electric, gas, oil or water company threatened to shut off services in your home? No 01/08/2025 Depression Answer Date Recorded Patient Health Questionnaire-2 Score 3 01/19/2025 Internet Access Answer Date Recorded Internet Access Q1 Yes 01/08/2025 Internet Access Q2 Not on file 01/08/2025 Sex and Gender Information Value Date Recorded Sex Assigned at Male 01/05/2022 10:18 AM EDT Legal Sex Male 10:18 AM EDT Gender Identity Male 10/10/2024 1:30 PM EDT Sexual Orientation Straight 10/10/2024 1: 30 PM EDT Last Filed Vital Signs Vital Sign Reading Time Taken Comments Blood Pressure 122/82 01/19/2025 9:33 AM EST Pulse 86 01/19/2025 9:33 AM EST Temperature 36.6 C (97.8 F) 01/19/2025 9:33 AM EST Respiratory Rate 20 01/19/2025 9:33 AM EST Oxygen Saturation 98% 10/10/2024 1:58 PM EDT Inhaled Oxygen Concentration - - Weight 99.4 kg (219 lb 3.2 oz) 01/19/2025 9:33 A M EST Height 172.7 cm (5' 8 ) 01/19/2025 9:33 AM EST Body Mass Index 33.33 01/19/2025 9:33 AM EST Plan of Treatment Upcoming Encounters Date Type Department Care Team (Late st Contact Info) Description 04/24/2025 11:00 AM EST Office Visit [facility] MEDICINE [address] [place] [address] Name, MD Stan [address] [place] [address] Health Maintenance Due Date Last Done Comments HIV Screening 1985 Lipid Panel 1985 Family Planning (PISQ) 2000 HPV Vaccines (1 - Male 3-dose series) 2000 Hepatitis C Screening 05/14/2003 Pneumococcal Vaccine: Pediatrics (0 to 5 Years) and At-Risk Patients (6 to 49) Years (1 of 2 - PCV) 2004 COVID-19 Vaccine ( - season) 2024 08/12/2020, 07/22/2020 Influenza Vaccine (#1) 2024 04/13/2014 SDOH Screening 01/08/2026 01/08/2025 Alcohol/Substance Use Screening 01/19/2026 01/19/2025 Depression Screening 01/19/2026 01/19/2025, 01/20/20 25 Disability Screening 01/19/2026 01/19/2025 Tobacco Screening 01/19/2026 01/19/2025 DTaP/Tdap/Td Vaccines (8 - Td or Tdap) [...] CONTRAST Routine 12/07/2024 1 2:43 PM EDT from Last 3 Months Results * XR Hip right with Pelvis 1 view (12/07/2024 12:45 PM EDT) Anatomical Region Laterality Modality Lower Extremities, Hip Bilateral Radiograp hic Imaging 12/07/2024 12:4 5 PM EDT Narrative 12/07/2024 1:08 PM EDT [address] [address] XRay Report Signed Patient: Boris Bonilla MR#: [id number] : 1985 Acct:[id number] Age/Sex: 39 / M ADM Date: 12/07/24 Loc: HO.ED Attending Dr: Ordering Physician: Nico Ayers Date of Service: 12/07/24 Procedure(s): XR hip RT w PEL1V Accession Number(s): [id number] cc: Nico Ayers; MINGO ESPINOZA NP Reason [...] 12/07/24 1305 DD/ 1245 TD/TT: 12/07/24 1255 Health And Physical Education Teacher: Procedure Note Donotuseinterpreter, Image - 12/07/[address] [address] XRay Report Signed Patient: Boris BonillaMR#: [id number] : 1985Acct:[id number] Age/Sex: 39 / MADM Date: 12/07/24 Loc: HO.ED Attending Dr: Ordering Physician: Nico Ayers Date of Service: 12/07/24 Procedure(s): XR hip RT w PEL1V Accession Number(s): [id number] cc: Nico Ayers; MINGO ESPINOZA NP Reason [...] 12/07/24 1305 DD/ 1245 TD/TT: 12/07/24 1255 Health And Physical Education Teacher: us [facility] External Provider IMG XR PROCEDURES Edited Result - Final * XR Ankle 3+ Views Right (12/07/2024 12:45 PM EDT) Anatomical Region Laterality Modality Lower Extremities, Ankle Right Radiogr aphic Imaging 12/07/2024 12:4 5 PM EDT Narrative 12/07/2024 1:06 PM EDT [address] [address] XRay Report Signed Patient: Boris Bonilla MR#: [id number] : 1985 Acct:[id number] Age/Sex: 39 / M ADM Date: 12/07/24 Loc: HO.ED Attending Dr: Ordering Physician: Nico Ayers Date of Service: 12/07/24 Procedure(s): XR ankle RT min 3V Accession Number(s): [id number] cc: Nico Ayers; MINGO ESPINOZA NP Reason [...] 12/07/24 1304 DD/ 1245 TD/TT: 12/07/24 1255 Health And Physical Education Teacher: Procedure Note Donotchuyter, Image - 12/07/[address] [address] XRay Report Signed Patient: Boris BonillaMR#: [id number] : 1985Acct:[id number] Age/Sex: 39 / MADM Date: 12/07/24 Loc: HO.ED Attending Dr: Ordering Physician: Nico Ayers Date of Service: 12/07/24 Procedure(s): XR ankle RT min 3V Accession Number(s): [id number] cc: Nico Ayers; MINGO ESPINOZA NP Reason [...] 12/07/24 1304 DD/ 1245 TD/TT: 12/07/24 1255 Health And Physical Education Teacher: [facility] External Provider IMG XR PROCEDURES Edited Result - Final * XR Shoulder 2+ Views Left (12/07/2024 12:45 PM EDT) Anatomical Region Laterality Modality Upper Extremities, Shoulder Left Radi ographic Imaging 12/07/2024 12:4 5 PM EDT Narrative 12/07/2024 1:03 PM EDT [address] [address] XRay Report Signed Patient: Boris Bonilla MR#: [id number] : 1985 Acct:[id number] Age/Sex: 39 / M ADM Date: 12/07/24 Loc: HO.ED Attending Dr: Ordering Physician: Nico Ayers Date of Service: 12/07/24 Procedure(s): XR shoulder LT min 2V Accession Number(s): [id number] cc: Nico Ayers; MINGO ESPINOZA NP Reason [...] 12/07/24 1300 DD/ 1245 TD/TT: 12/07/24 1255 Health And Physical Education Teacher: BARBARA Procedure Note Donotuseinterpreter, Image - 12/07/[address] [address] XRay Report Signed Patient: Boris BonillaMR#: [id number] : 1985Acct:[id number] Age/Sex: 39 / MADM Date: 12/07/24 Loc: HO.ED Attending Dr: Ordering Physician: Nico Ayers Date of Service: 12/07/24 Procedure(s): XR shoulder LT min 2V Accession Number(s): [id number] cc: Nico Ayers; MINGO ESPINOZA NP Reason [...] 12/07/24 1300 DD/ 1245 TD/TT: 12/07/24 1255 Health And Physical Education Teacher: BARBARA [facility] External Provider IMG XR PROCEDURES Edited Result - Final * CT Cervical Spine w/o Contrast (12/07/2024 12:43 PM EDT) Anatomical Region Laterality Modality Spine, C-spine Computed Tomogra phy 12/07/2024 12:4 3 PM EDT Narrative 12/07/2024 1:32 PM EDT [place] [address] CT Scan Report Signed Patient: Boris Bonilla MR#: [id number] : 1985 Acct:[id number] Age/Sex: 39 / M ADM Date: 12/07/24 Loc: HO.ED Attending Dr: Ordering Physician: Nico Ayers Date of Service: 12/07/24 Procedure(s): CT cervical spine wo IV con Accession Number(s): [id number] cc: Nico Ayers; MINGO ESPINOZA NP Report Number: [id number]: Total DLP = 1401.00 mGy-cm Reason for [...] 12/07/24 1329 DD/ 1243 TD/TT: 12/07/24 1317 Health And Physical Education Teacher: Procedure Note Donotuseinterpreter, Image - 12/07/[address] [address] [address] Scan Report Signed Patient: Enid Bonilla#: [id number] : 1985Acct:[id number] Age/Sex: 39 / MADM Date: 12/07/24 Loc: HO.ED Attending Dr: Ordering Physician: Nico Ayers Date of Service: 12/07/24 Procedure(s): CT cervical spine wo IV con Accession Number(s): [id number] cc: Nico Ayers; MINGO ESPINOZA NP Report Number: [id number]: Total DLP = 1401.00 mGy-cm Reason for [...] 12/07/2024 01:29 PM EDT RP Dictated By: Brigdio Kraft MD Signed By: <Electronically signed by Brigido Darnell MDin OV> 12/07/24 1329 DD/ 1243 TD/TT: 12/07/24 1317 Health And Physical Education Teacher: [facility] External Provider IMG CT PROCEDURES Edited Result - Final * CT Head w/o Contrast (12/07/2024 12:43 PM EDT) Anatomical Region Laterality Modality Head, Neck Computed Tomogra phy 12/07/2024 12:4 3 PM EDT Narrative 12/07/2024 1:27 PM EDT [place] [address] CT Scan Report Signed Patient: Boris Bonilla MR#: [id number] : 1985 Acct:[id number] Age/Sex: 39 / M ADM Date: 12/07/24 Loc: HO.ED Attending Dr: Ordering Physician: Nico Ayers Date of Service: 12/07/24 Procedure(s): CT head/brain wo IV con Accession Number(s): [id number] cc: Nico Ayers; MINGO ESPINOZA NP Report Number: [id number]: Total DLP = 0.00 mGy-cm Reason for [...] 12/07/24 1324 DD/ 1243 TD/TT: 12/07/24 1317 Health And Physical Education Teacher: Procedure Note Donotjerryinterpreter, Image - 12/07/[address] [address] [address] Scan Report Signed Patient: Enid Bonilla#: [id number] : 1985Acct:[id number] Age/Sex: 39 / MADM Date: 12/07/24 Loc: HO.ED Attending Dr: Ordering Physician: Nico Ayers Date of Service: 12/07/24 Procedure(s): CT head/brain wo IV con Accession Number(s): [id number] cc: Nico Ayers; MINGO ESPINOZA NP Report Number: [id number]: Total DLP = 0.00 mGy-cm Reason for [...] 12/07/24 1324 DD/ 1243 TD/TT: 12/07/24 1317 Health And Physical Education Teacher: [facility] External Provider IMG CT PROCEDURES Edited Result - Final from Last 3 Months Insurance 3 Samantha Gamble MA Care Teams Spray Gun Repairer Helper Relationship Specialty Start Date End Date Name, MD Stan [address] [place] [address] [place] [address] PCP - General Internal Medicine 01/19/25 Jackeline Stevens [address] [place] [address] Orthopaedic Surgery 10/13/24 [facility] [address] [place] [address] Physical Therapy 10/13/24
== END 2025-01-29 08:45 | disposition home or self-care (01) ==
LOC: HO.HOS 08:25
PROVIDERS: Visit Provider Orthopaedic Surgery
DX: M75.112 Incomplete rotator cuff tear or rupture of left shoulder, not specified as traumatic (principal)
CPT/HCPCS: 99214

== ENCOUNTER → 2025-01-29 08:25 | Outpatient (BNVA) | payer MEDICAID, SELFPAY | PROVIDERS: Visit Provider Orthopaedic Surgery | DX: M25.512 Pain in left shoulder (principal); M75.112 Incomplete rotator cuff tear or rupture of left shoulder, not specified as traumatic | CPT/HCPCS: 99212 ==

== ENCOUNTER 2025-02-15 07:53 | Outpatient (REF) | payer MEDICAID, SELFPAY ==
[2025-02-15 09:31] LABS: Alanine Aminotransferase 30 U/L (0-40); Albumin Level 4.5 g/dL (3.5-5.0); Alkaline Phosphatase 85 U/L (39-117); Anion Gap 9 (12-20); Aspartate Amino Transferase 26 U/L (5-37); Blood Urea Nitrogen 14 mg/dL (9-16); Calcium 9.1 mg/dL (8.4-10.2); Carbon Dioxide 23 mmol/L (22-29); Chloride 109 mmol/L (96-108); Cholesterol 220 mg/dL (<200); Estimated Glomerular Filt Rate > 60; HDL Cholesterol 34 mg/dL (>40); Potassium 4.1 mmol/L (3.3-5.1); Sodium 137 mmol/L (135-145); Total Protein 7.6 g/dL (6.5-8.0); Triglycerides 101 mg/dL (<150)
[2025-02-15 09:53] LABS: HBS Num1 1.63 mIU/mL (0-7.99); HBsAGNum1 0.46 S/CO (0.00-0.99); HIV Num 1 0.07 S/CO (0.00-0.99); Hepatitis B Surface Antigen Negative (Negative); ~HepC Num1 2.00 S/CO (0.00-0.79); ~Hepatitis B Surface Antibody NONREACTIVE (Nonreactive); ~Hepatitis C Antibody Reactive (Nonreactive)
== END 2025-02-15 07:54 ==
LOC: HO.LAB 07:53
PROVIDERS: PCP Internal Medicine Geriatric Medicine; Visit Provider Internal Medicine Geriatric Medicine
DX: Z13.220 Encounter for screening for lipoid disorders (principal); Z11.3 Encounter for screening for infections with a predominantly sexual mode of transmission; Z13.1 Encounter for screening for diabetes mellitus; Z11.59 Encounter for screening for other viral diseases; Z11.4 Encounter for screening for human immunodeficiency virus [HIV]; Z83.49 Family history of other endocrine, nutritional and metabolic diseases
CPT/HCPCS: 36415; 80053; 80061; 84443; 86592; 86706; 86803; 87340; 87389; 87522